=== PATIENT | female | born 1960 | race Caucasian/White ===

== ENCOUNTER 2016-11-24 12:44 | Emergency (ER) | payer OTHER, MEDICARE ==
[~2016-11-24] VITALS: Ht 162.6 cm; Wt 90.9 kg
[~2016-11-24 12:44] MED LIST: AMBIEN 10MG10 MG PO; AMBIEN10 MG PO; AMOXICILLIN/CLA1 TA1 PO; ASPIRIN 81M81 MG/TA2 PO; ATARAX 25MG25 MG/TAB PO; ATIVAN 1MG T1 MG/TAB PO; BACTRIM DS 8001 TAB PO; BENICAR40 MG PO; CARAFATE S1 GM/10 ML PO; CELEXA40 MG PO; COLACE 100100 MG/CAP PO; CYMBALTA 60MG60 MG PO; CYMBALTA30 MG PO; DAZIDOX10 MG PO; DILAUDID 4MG TAB4 MG PO; FENTANYL 50MCG TP; FLAGYL500 MG PO; FLEXERIL 1010 MG/TAB PO; FLEXERIL5 MG PO; GEMCOR600 MG PO; HUMULIN R100 U/ML IJ; KLONOPIN 0.5MG0.5 MG PO; LANTUS100 U/ML SQ; LASIX 20MG TABL20 MG PO; LEVAQUIN 250MG250 MG PO; LEVEMIR100 U/ML SQ; LEXAPRO10 MG PO; LIPITOR 10MG10 MG PO; LISINOPRIL20 MG PO; LOFIBRA160 MG PO; LOPRESSOR 225 MG/TAB PO; LYRICA 50MG CAP50 MG PO; METHADONE H10 MG/TAB PO; METHADONE10 MG PO; MIRALAX 17GM PK1 PKT PO; MIRALAX PA17 GM/Dose PO; NAPROSYN 2250 MG/TAB PO; NIACIN500 M3 PO; NOVLOG SQ; NOVOLOG 100U100 U/M1 SC; NOVOLOG 100U100 U/M1 SQ; NOVOLOG FLEX100 U/ML SQ; PERCOCET 325 MG1 TA2 PO; PERCOCET 325 MG1 TAB PO; PRILOSEC 20MG20 MG PO; REGLAN 10MG10 MG/TAB PO; SODIUM BICARBO650 MG PO; TRICOR48 MG PO; TRIMPEX100 MG PO; VANCOCIN HCL1 GM IV; XANAX 0.5MG0.5 MG PO; ZAROXOLYN 2.52.5 MG PO; ZESTRIL 20MG TA20 MG PO; ZESTRIL40 MG PO; ZOFRAN 4MG T4 MG/TAB PO; ZOFRAN ODT4 MG PO; ZYLOPRIM 100MG100 MG PO; [UNRECOGNIZED DRUG - REMARK] PO
[2016-11-24 12:55] VITALS: TEMP 98.9
[2016-11-24] MEDS ORDERED: PERCOCET 325 MG1 TA3 PO (15:57)
[2016-11-24 16:43] VITALS: BP 145/65; PULSE 78
[2017-02-19] MEDS ORDERED: MAXIPIME1 GM IV (10:04)
== END 2016-11-24 16:43 | disposition home or self-care (01) ==
LOC: COL.ER 12:44
DX: S22.088A Other fracture of T11-T12 vertebra, initial encounter for closed fracture (principal); S32.058A Other fracture of fifth lumbar vertebra, initial encounter for closed fracture; S32.048A Other fracture of fourth lumbar vertebra, initial encounter for closed fracture; S32.038A Other fracture of third lumbar vertebra, initial encounter for closed fracture; S32.028A Other fracture of second lumbar vertebra, initial encounter for closed fracture; S32.018A Other fracture of first lumbar vertebra, initial encounter for closed fracture; V48.5XXA Car driver injured in noncollision transport accident in traffic accident, initial encounter; M25.551 Pain in right hip
CPT/HCPCS: J1170; J2405

== ENCOUNTER 2016-11-26 18:35 | Inpatient (IN) | payer MEDICARE, OTHER ==
[2016-11-26] VITALS (10 sets, daily range): O2SAT 88–100
[~2016-11-26] VITALS: Ht 162.6 cm; Wt 90.7 kg
[~2016-11-26 18:35] MED LIST changes: +PERCOCET 325 MG1 TA3 PO
[2016-11-26 19:55] LABS: BASO % 0.3 % (0.0-2.0); GRAN # 11.1 (1.4-6.5); GRAN % 92.3 % (42.2-75.2); HEMOGLOBIN 10.8 g/dl (12.5-16.0); LYMPH # 0.6 (1.2-3.4); LYMPH % 4.7 % (20.0-51.0); MEAN CELL VOLUME 92 fl (80.0-100.0); MEAN CORPUSCULAR HEMOGLOBIN 28 pg (27.0-31.0); MEAN CORPUSCULAR HGB CONC 30 g/dl (33.0-37.0); MEAN PLATELET VOLUME 10.6 fl (7.4-10.4); MONO # 0.3 (0.1-0.6); MONO % 2.1 % (1.7-9.3); PLATELET COUNT 389 K/mm3 (130-400); RED BLOOD COUNT 3.91 M/mm3 (4.10-5.30); REDCELL DISTRIBUTION WIDTH-CV 12.8 % (11.5-14.5)
[2016-11-26 20:00] LABS: ADJUSTED CALCIUM 10.1 mg/dL (8.4-10.2); ALANINE AMINOTRANSFERASE 16 U/L (9-52); ALBUMIN 4.3 gm/dL (3.5-5.0); ALKALINE PHOSPHATASE 92 U/L (50-136); ANION GAP 34 mmol/L (7-16); BILIRUBIN,TOTAL 0.8 mg/dL (0.0-1.0); BLOOD UREA NITROGEN 42 mg/dL (7-17); CALCIUM 10.3 mg/dL (8.4-10.2); CHLORIDE 96 mmol/L (98-107); CREATININE, serum 2.16 mg/dL (0.52-1.25); LIPASE 89 U/L (23-300); POTASSIUM 4.8 mmol/L (3.4-5.0); SODIUM 139 mmol/L (137-145)
[2016-11-26 20:02] LABS: CARBON DIOXIDE 10 mmol/L (22-30); GLUCOSE 467 mg/dL (74-106)
[2016-11-26 20:31] LABS: PH 5 (5-8); SQUAMOUS EPITHELIAL 0-2 /hpf; URINE APPEARANCE Clear; URINE BACTERIA None Seen /hpf; URINE BILIRUBIN Negative (NEGATIVE); URINE BLOOD 1+ (NEGATIVE); URINE COLOR Yellow; URINE GLUCOSE 3+ (NEGATIVE); URINE KETONE 2+ (NEGATIVE); URINE RBC 0-2 /hpf; URINE UROBILINOGEN Negative (NEGATIVE); URINE WBC 0-2 /hpf
[2016-11-27] VITALS (682 sets, daily range): BP systolic 128–171; BP diastolic 53–88; PULSE 78–108; TEMP 97.3–98.8; O2SAT 80–100
[2016-11-27 01:09] LABS: MAGNESIUM 1.9 mg/dL (1.6-2.3); PHOSPHOROUS 5.4 mg/dL (2.5-4.5)
[2016-11-27 01:14] LABS: CALCIUM 9.5 mg/dL (8.4-10.2); CREATININE, serum 1.81 mg/dL (0.52-1.25); POTASSIUM 4.4 mmol/L (3.4-5.0)
[2016-11-27 02:49] LABS: ARTERIAL BLD GAS O2 SATURATION 94.9 % (92-100); ARTERIAL BLD GAS TCO2 CT 21.9; ARTERIAL BLOOD GAS BASE EXCESS -3.5 (-2-2); ARTERIAL BLOOD GAS HCO3 20.8 meq/L (22-26); ARTERIAL BLOOD GAS PO2 75.9 mmHg (80-100); ARTERIAL BLOOD GAS PO2T 75.9 (80-100); OXYHEMOGLOBIN 94.2 %
[2016-11-27 02:50] LABS: ALLEN TEST YES; ALLENS TEST RESULT PASS; ATS? YES
[2016-11-27 03:09] LABS: CALCIUM 9.3 mg/dL (8.4-10.2); CREATININE, serum 1.73 mg/dL (0.52-1.25); POTASSIUM 4.5 mmol/L (3.4-5.0)
[2016-11-27 05:12] LABS: BASO % 0.2 % (0.0-2.0); GRAN # 9.1 (1.4-6.5); GRAN % 79.7 % (42.2-75.2); HEMATOCRIT 31.5 % (37.0-47.0); LYMPH # 1.2 (1.2-3.4); LYMPH % 10.2 % (20.0-51.0); MEAN CELL VOLUME 89 fl (80.0-100.0); MEAN CORPUSCULAR HEMOGLOBIN 28 pg (27.0-31.0); MEAN CORPUSCULAR HGB CONC 32 g/dl (33.0-37.0); MEAN PLATELET VOLUME 10.1 fl (7.4-10.4); MONO % 9.1 % (1.7-9.3); PLATELET COUNT 337 K/mm3 (130-400); RED BLOOD COUNT 3.56 M/mm3 (4.10-5.30); REDCELL DISTRIBUTION WIDTH-CV 12.6 % (11.5-14.5); WHITE BLOOD COUNT 11.4 K/mm3 (4.8-10.8)
[2016-11-27 05:27] LABS: CALCIUM 9.2 mg/dL (8.4-10.2); CREATININE, serum 1.6 mg/dL (0.52-1.25); MAGNESIUM 1.5 mg/dL (1.6-2.3); PHOSPHOROUS 1.6 mg/dL (2.5-4.5); POTASSIUM 4.7 mmol/L (3.4-5.0)
[2016-11-27 07:55] LABS: CREATININE, serum 1.64 mg/dL (0.52-1.25); POTASSIUM 4.3 mmol/L (3.4-5.0)
[2016-11-27 10:18] LABS: CALCIUM 9.3 mg/dL (8.4-10.2); CREATININE, serum 1.71 mg/dL (0.52-1.25); POTASSIUM 4.2 mmol/L (3.4-5.0)
[2016-11-27 12:19] LABS: CALCIUM 9.1 mg/dL (8.4-10.2); CREATININE, serum 1.62 mg/dL (0.52-1.25); POTASSIUM 5.1 mmol/L (3.4-5.0)
[2016-11-27 14:18] LABS: CALCIUM 8.9 mg/dL (8.4-10.2); CREATININE, serum 1.61 mg/dL (0.52-1.25)
[2016-11-27 17:27] LABS: CREATININE, serum 1.63 mg/dL (0.52-1.25); POTASSIUM 4.7 mmol/L (3.4-5.0)
[2016-11-27 19:21] LABS: CREATININE, serum 1.52 mg/dL (0.52-1.25); POTASSIUM 4.8 mmol/L (3.4-5.0)
[2016-11-27 21:41] LABS: CALCIUM 9.1 mg/dL (8.4-10.2); CREATININE, serum 1.63 mg/dL (0.52-1.25); POTASSIUM 4.4 mmol/L (3.4-5.0)
[2016-11-28 04:01] VITALS: BP 172/89; PULSE 81; TEMP 99.1
[2016-11-28 07:45] LABS: PHOSPHOROUS 3.5 mg/dL (2.5-4.5)
[2016-11-28 07:48] VITALS: BP 186/76; PULSE 82; TEMP 97.9
[2016-11-28 11:47] VITALS: BP 172/64; PULSE 75; TEMP 98.4
[2016-11-28 16:25] VITALS: BP 174/67; PULSE 74; TEMP 99.8
[2016-11-28 19:15] VITALS: BP 147/51; PULSE 71; TEMP 98.9
[2016-11-28 22:26] VITALS: BP 146/68; PULSE 70; TEMP 98.7
[2016-11-29 04:33] VITALS: BP 147/56; PULSE 66; TEMP 98.2
[2016-11-29 08:14] LABS: CALCIUM 9.5 mg/dL (8.4-10.2); CREATININE, serum 1.58 mg/dL (0.52-1.25); POTASSIUM 4.5 mmol/L (3.4-5.0)
[2016-11-29 08:30] VITALS: BP 155/61; PULSE 66; PULSE 966; TEMP 99.2
[2016-11-29] MEDS ORDERED: NOVOLOG FLEX100 U/ML SQ (10:22)
[2017-02-19] MEDS ORDERED: MAXIPIME1 GM IV (10:04)
== END 2016-11-29 13:32 | disposition home or self-care (01) | DRG 639 ==
LOC: COL.ER 18:35 → ICU 21:59 → MEDICAL 11-27 16:35
PROVIDERS: Emergency Medicine; Family Medicine; Nurse Practitioner Family
PROC: 02HV33Z Insertion of Infusion Device into Superior Vena Cava, Percutaneous Approach (ICD-10-PCS; principal; 2016-11-27)
DX: E13.10 Other specified diabetes mellitus with ketoacidosis without coma (principal); E83.39 Other disorders of phosphorus metabolism; E83.42 Hypomagnesemia; D63.1 Anemia in chronic kidney disease; E83.52 Hypercalcemia; E11.43 Type 2 diabetes mellitus with diabetic autonomic (poly)neuropathy; K31.84 Gastroparesis; E11.621 Type 2 diabetes mellitus with foot ulcer; E86.0 Dehydration; I12.9 Hypertensive chronic kidney disease with stage 1 through stage 4 chronic kidney disease, or unspecified chronic kidney disease; E11.22 Type 2 diabetes mellitus with diabetic chronic kidney disease; Z87.891 Personal history of nicotine dependence; Z79.4 Long term (current) use of insulin
CPT/HCPCS: 99223-AI; 99232-AI; 99239; C1751; C1894; J1170; J1644; J1815; J2405; J3475; J7030; J7040

== ENCOUNTER → 2017-01-03 | Outpatient (CLI) | payer MEDICARE ==
[~2017-01-03] MED LIST changes: +ASPI325T6 PO; +BENICAR 20MG TA20 MG PO; +LIPITOR20 MG PO; +MAXIPIME1 GM IV; +MAXIPIME1 GM PO; +NEURONTIN300 MG/CAP PO; +NORVASC 5MG5 MG/TAB PO; +PROCARDIA XL 6060 MG PO; +PROTONIX 40MG T40 MG PO; +ROCEPHIN 2GM VIAL21 IV; +ROXICODONE 55 MG/TAB PO; +TRILIPIX 135MG PO; +TYLENOL 325MG325 MG PO; +VELTASSA8.4 GM PO
== END ==
LOC: COL.RAD 15:36
DX: M12.872 Other specific arthropathies, not elsewhere classified, left ankle and foot (principal)

== ENCOUNTER 2017-01-10 14:33 | Inpatient (IN) | payer MEDICARE ==
[~2017-01-10] VITALS: Ht 152.4 cm; Wt 96.7 kg
[~2017-01-10 14:33] MED LIST changes: -ASPI325T6 PO; -BENICAR 20MG TA20 MG PO; -LIPITOR20 MG PO; -MAXIPIME1 GM IV; -MAXIPIME1 GM PO; -NEURONTIN300 MG/CAP PO; -NORVASC 5MG5 MG/TAB PO; -PROCARDIA XL 6060 MG PO; -PROTONIX 40MG T40 MG PO; -ROCEPHIN 2GM VIAL21 IV; -ROXICODONE 55 MG/TAB PO; -TRILIPIX 135MG PO; -TYLENOL 325MG325 MG PO; -VELTASSA8.4 GM PO
[2017-01-10 15:51] LABS: BASO # 0.1 (0.0-0.2); BASO % 0.8 % (0.0-2.0); EOS # 0.3 (0.0-0.7); EOS % 2.8 % (0-4.0); GRAN # 6.4 (1.4-6.5); GRAN % 55.6 % (42.2-75.2); LYMPH # 3.5 (1.2-3.4); LYMPH % 30.7 % (20.0-51.0); MEAN CELL VOLUME 87 fl (80.0-100.0); MEAN CORPUSCULAR HGB CONC 31 g/dl (33.0-37.0); MONO # 1.1 (0.1-0.6); MONO % 9.7 % (1.7-9.3); PLATELET COUNT 573 K/mm3 (130-400); RED BLOOD COUNT 3.32 M/mm3 (4.10-5.30); REDCELL DISTRIBUTION WIDTH-CV 13.7 % (11.5-14.5); WHITE BLOOD COUNT 11.5 K/mm3 (4.8-10.8)
[2017-01-10 15:52] LABS: HEMATOCRIT 28.8 % (37.0-47.0); HEMOGLOBIN 8.9 g/dl (12.5-16.0); MEAN CORPUSCULAR HEMOGLOBIN 27 pg (27.0-31.0)
[2017-01-10 16:06] LABS: ADJUSTED CALCIUM 9.4 mg/dL (8.4-10.2); ALBUMIN 3.4 gm/dL (3.5-5.0); BILIRUBIN,TOTAL 0.6 mg/dL (0.0-1.0); C-REACTIVE PROTEIN 6.4 mg/dL (0.0-0.9); CALCIUM 8.9 mg/dL (8.4-10.2); CREATININE, serum 3.27 mg/dL (0.52-1.25); POTASSIUM 5.6 mmol/L (3.4-5.0)
[2017-01-10 16:31] LABS: ERYTHROCYTE SEDIMENTATION RATE 85 mm/hr (0-30)
[2017-01-10 18:06] LABS: INR 1.1 (0.8-3.0); PROTHROMBIN TIME 12.1 SECONDS (9.7-12.8)
[2017-01-10 19:00] VITALS: BP 136/62; PULSE 77; TEMP 97.7
[2017-01-10 20:48] LABS: PH 5 (5-8); SQUAMOUS EPITHELIAL 0-2 /hpf; URINE APPEARANCE Clear; URINE BACTERIA None Seen /hpf; URINE BILIRUBIN Negative (NEGATIVE); URINE BLOOD 1+ (NEGATIVE); URINE COLOR Straw; URINE GLUCOSE 2+ (NEGATIVE); URINE KETONE Negative (NEGATIVE); URINE UROBILINOGEN Negative (NEGATIVE)
[2017-01-10 23:54] VITALS: BP 150/54; PULSE 77; TEMP 98.4
[2017-01-11 04:00] VITALS: BP 146/55; PULSE 74; TEMP 97.8
[2017-01-11 06:51] LABS: INR 1.1 (0.8-3.0); PROTHROMBIN TIME 12.3 SECONDS (9.7-12.8)
[2017-01-11 08:17] VITALS: BP 132/51; PULSE 73; TEMP 97.8
[2017-01-11 08:50] LABS: VENOUS BLOOD GAS BE -0.8 (-4-4); VENOUS BLOOD GAS SAO2 86.4 % (60-80)
[2017-01-11 08:51] LABS: VENOUS BLOOD GAS SITE VENIPUNCTURE
[2017-01-11 11:49] VITALS: BP 139/43; PULSE 71; TEMP 98.6
[2017-01-11 14:35] LABS: CALCIUM 8.8 mg/dL (8.4-10.2); CREATININE, serum 2.23 mg/dL (0.52-1.25); POTASSIUM 5.6 mmol/L (3.4-5.0)
[2017-01-11 15:41] VITALS: BP 132/49; PULSE 68; TEMP 97.7
[2017-01-11 20:04] VITALS: BP 153/74; PULSE 71; TEMP 98.1
[2017-01-12 00:14] VITALS: BP 128/99; PULSE 57; TEMP 98.8
[2017-01-12 04:57] VITALS: BP 129/52; PULSE 72; TEMP 98.4
[2017-01-12 06:14] LABS: INR 1.1 (0.8-3.0); PROTHROMBIN TIME 12.7 SECONDS (9.7-12.8)
[2017-01-12 06:22] LABS: CALCIUM 9.3 mg/dL (8.4-10.2); CREATININE, serum 1.96 mg/dL (0.52-1.25)
[2017-01-12 06:24] LABS: POTASSIUM 5.8 mmol/L (3.4-5.0)
[2017-01-12 08:00] VITALS: BP 157/69; PULSE 83; TEMP 98
[2017-01-12 10:30] LABS: BASO # 0.1 (0.0-0.2); BASO % 0.9 % (0.0-2.0); EOS # 0.2 (0.0-0.7); EOS % 2.2 % (0-4.0); GRAN # 6.5 (1.4-6.5); GRAN % 69.7 % (42.2-75.2); LYMPH # 1.9 (1.2-3.4); LYMPH % 19.9 % (20.0-51.0); MEAN CELL VOLUME 90 fl (80.0-100.0); MEAN CORPUSCULAR HGB CONC 30 g/dl (33.0-37.0); MEAN PLATELET VOLUME 10.6 fl (7.4-10.4); MONO # 0.7 (0.1-0.6); PLATELET COUNT 642 K/mm3 (130-400); RED BLOOD COUNT 3.34 M/mm3 (4.10-5.30); REDCELL DISTRIBUTION WIDTH-CV 13.6 % (11.5-14.5); WHITE BLOOD COUNT 9.4 K/mm3 (4.8-10.8)
[2017-01-12 10:31] LABS: HEMATOCRIT 30.1 % (37.0-47.0); HEMOGLOBIN 8.9 g/dl (12.5-16.0); MEAN CORPUSCULAR HEMOGLOBIN 27 pg (27.0-31.0)
[2017-01-12 12:33] VITALS: BP 144/56; PULSE 76; TEMP 98.1
[2017-01-12 16:01] VITALS: BP 159/59; PULSE 75; TEMP 97.9
[2017-01-12 19:10] VITALS: BP 162/48; PULSE 85; TEMP 98.4
[2017-01-13] VITALS (7 sets, daily range): BP systolic 144–226; BP diastolic 53–89; PULSE 72–93; TEMP 97.8–98.8
[2017-01-13 07:08] LABS: BASO # 0.1 (0.0-0.2); BASO % 0.9 % (0.0-2.0); EOS # 0.2 (0.0-0.7); EOS % 2.7 % (0-4.0); GRAN # 2.3 (1.4-6.5); GRAN % 41.3 % (42.2-75.2); LYMPH # 2.2 (1.2-3.4); LYMPH % 40.4 % (20.0-51.0); MEAN CELL VOLUME 89 fl (80.0-100.0); MEAN CORPUSCULAR HGB CONC 30 g/dl (33.0-37.0); MEAN PLATELET VOLUME 10.1 fl (7.4-10.4); MONO # 0.8 (0.1-0.6); MONO % 14.3 % (1.7-9.3); PLATELET COUNT 590 K/mm3 (130-400); RED BLOOD COUNT 3.18 M/mm3 (4.10-5.30); REDCELL DISTRIBUTION WIDTH-CV 13.4 % (11.5-14.5); WHITE BLOOD COUNT 5.5 K/mm3 (4.8-10.8)
[2017-01-13 07:09] LABS: HEMATOCRIT 28.3 % (37.0-47.0); HEMOGLOBIN 8.6 g/dl (12.5-16.0); MEAN CORPUSCULAR HEMOGLOBIN 27 pg (27.0-31.0)
[2017-01-13 07:18] LABS: CALCIUM 9.3 mg/dL (8.4-10.2); CREATININE, serum 1.64 mg/dL (0.52-1.25); POTASSIUM 5.1 mmol/L (3.4-5.0)
[2017-01-13 07:25] LABS: INR 1.1 (0.8-3.0); PROTHROMBIN TIME 12.6 SECONDS (9.7-12.8)
[2017-01-14 02:44] VITALS: BP 177/77; PULSE 73; TEMP 98.5
[2017-01-14 08:45] VITALS: BP 175/60; PULSE 77
[2017-01-14 11:10] LABS: CREATININE, serum 1.63 mg/dL (0.52-1.25)
[2017-01-14 12:39] VITALS: BP 146/50; PULSE 74; TEMP 98.2
[2017-01-14 17:57] VITALS: BP 158/61; PULSE 80; TEMP 98.5
[2017-01-14 20:58] VITALS: BP 113/82; PULSE 83; TEMP 98.5
[2017-01-14 23:26] VITALS: BP 146/61; PULSE 78; TEMP 98.7
[2017-01-15 03:12] VITALS: BP 158/57; PULSE 77; TEMP 98.5
[2017-01-15 08:20] VITALS: BP 164/60; PULSE 78; TEMP 98.3
[2017-01-15 12:05] LABS: BASO # 0.1 (0.0-0.2); EOS # 0.2 (0.0-0.7); EOS % 2.8 % (0-4.0); GRAN % 55.6 % (42.2-75.2); LYMPH # 2.1 (1.2-3.4); LYMPH % 28.8 % (20.0-51.0); MEAN CELL VOLUME 88 fl (80.0-100.0); MEAN CORPUSCULAR HGB CONC 31 g/dl (33.0-37.0); MEAN PLATELET VOLUME 9.9 fl (7.4-10.4); MONO # 0.8 (0.1-0.6); MONO % 11.4 % (1.7-9.3); PLATELET COUNT 562 K/mm3 (130-400); RED BLOOD COUNT 3.33 M/mm3 (4.10-5.30); REDCELL DISTRIBUTION WIDTH-CV 13.5 % (11.5-14.5); WHITE BLOOD COUNT 7.1 K/mm3 (4.8-10.8)
[2017-01-15 12:06] LABS: HEMATOCRIT 29.4 % (37.0-47.0); MEAN CORPUSCULAR HEMOGLOBIN 27 pg (27.0-31.0)
[2017-01-15 12:07] LABS: ADJUSTED CALCIUM 9.6 mg/dL (8.4-10.2); ALBUMIN 3.2 gm/dL (3.5-5.0); BILIRUBIN,TOTAL 0.6 mg/dL (0.0-1.0); CREATININE, serum 1.5 mg/dL (0.52-1.25); MAGNESIUM 1.2 mg/dL (1.6-2.3); POTASSIUM 4.5 mmol/L (3.4-5.0); TOTAL PROTEIN 6.8 gm/dL (6.4-8.2)
[2017-01-15 12:19] VITALS: BP 138/79; PULSE 80; TEMP 98.3
[2017-01-15 13:12] LABS: PH 5 (5-8); SQUAMOUS EPITHELIAL 0-2 /hpf; URINE APPEARANCE Clear; URINE BACTERIA None Seen /hpf; URINE BILIRUBIN Negative (NEGATIVE); URINE BLOOD 1+ (NEGATIVE); URINE COLOR Straw; URINE GLUCOSE 2+ (NEGATIVE); URINE KETONE Negative (NEGATIVE); URINE RBC 0-2 /hpf; URINE UROBILINOGEN Negative (NEGATIVE); URINE WBC 0-2 /hpf
[2017-01-15 15:46] VITALS: BP 153/60; PULSE 71; TEMP 98.2
[2017-01-15 19:25] VITALS: BP 146/50; PULSE 80; TEMP 98.4
[2017-01-15 23:34] VITALS: BP 157/61; PULSE 73; TEMP 98.6
[2017-01-16 03:37] VITALS: BP 151/59; PULSE 73; TEMP 97.9
[2017-01-16 07:47] VITALS: BP 161/59; PULSE 79; TEMP 98.1
[2017-01-16 08:20] LABS: CALCIUM 9.5 mg/dL (8.4-10.2); CREATININE, serum 1.6 mg/dL (0.52-1.25)
[2017-01-16 11:47] VITALS: BP 161/55; PULSE 77; TEMP 98.5
[2017-01-16] MEDS ORDERED: PROCARDIA XL 6060 MG PO (14:03)
[2017-01-16] MEDS ORDERED: LEVEMIR100 U/ML SQ (14:06)
[2017-01-16] MEDS ORDERED: NOVOLOG 100U100 U/M1 SQ (14:06)
[2017-01-16] MEDS ORDERED: REGLAN 10MG10 MG/TAB PO (14:07)
[2017-01-16] MEDS ORDERED: ROCEPHIN 2GM VIAL21 IV (14:24)
[2017-01-16 16:20] VITALS: BP 152/67; PULSE 85; TEMP 98.4
[2017-02-19] MEDS ORDERED: MAXIPIME1 GM IV (10:04)
== END 2017-01-16 17:30 | disposition home health service (06) | DRG 638 ==
LOC: COL.ER 14:33 → MEDICAL 16:07
PROVIDERS: Emergency Medicine; Internal Medicine; Internal Medicine Cardiovascular Disease; Internal Medicine Nephrology; Physician Assistant
PROC: 02HV33Z Insertion of Infusion Device into Superior Vena Cava, Percutaneous Approach (ICD-10-PCS; principal; 2017-01-11)
DX: E11.69 Type 2 diabetes mellitus with other specified complication (principal); M86.172 Other acute osteomyelitis, left ankle and foot; M86.672 Other chronic osteomyelitis, left ankle and foot; L97.429 Non-pressure chronic ulcer of left heel and midfoot with unspecified severity; E11.65 Type 2 diabetes mellitus with hyperglycemia; E11.43 Type 2 diabetes mellitus with diabetic autonomic (poly)neuropathy; K31.84 Gastroparesis; N17.9 Acute kidney failure, unspecified; I12.9 Hypertensive chronic kidney disease with stage 1 through stage 4 chronic kidney disease, or unspecified chronic kidney disease; E11.22 Type 2 diabetes mellitus with diabetic chronic kidney disease; N18.9 Chronic kidney disease, unspecified; D63.1 Anemia in chronic kidney disease; E87.5 Hyperkalemia; Z87.891 Personal history of nicotine dependence; E11.610 Type 2 diabetes mellitus with diabetic neuropathic arthropathy; E11.621 Type 2 diabetes mellitus with foot ulcer; E11.21 Type 2 diabetes mellitus with diabetic nephropathy; Z79.4 Long term (current) use of insulin
CPT/HCPCS: 99222-AI; 99232-AI; 99233-AI; 99239; C1751; J0360; J0692; J0696; J0881-EA-EB-EC; J1644; J1650; J1815; J2405; J2765; J3370; J3475; J7030; J7050

== ENCOUNTER → 2017-01-10 | Outpatient (CLI) | payer MEDICARE | LOC: COL.RAD 09:49 | DX: L97.529 Non-pressure chronic ulcer of other part of left foot with unspecified severity (principal); R93.7 Abnormal findings on diagnostic imaging of other parts of musculoskeletal system | CPT/HCPCS: A9503 ==

== ENCOUNTER → 2017-01-22 | Outpatient (CLI) | payer MEDICARE ==
[~2017-01-22] MED LIST changes: +ASPI325T6 PO; +BENICAR 20MG TA20 MG PO; +LIPITOR20 MG PO; +MAXIPIME1 GM IV; +MAXIPIME1 GM PO; +NEURONTIN300 MG/CAP PO; +NORVASC 5MG5 MG/TAB PO; +PROCARDIA XL 6060 MG PO; +PROTONIX 40MG T40 MG PO; +ROCEPHIN 2GM VIAL21 IV; +ROXICODONE 55 MG/TAB PO; +TRILIPIX 135MG PO; +TYLENOL 325MG325 MG PO; +VELTASSA8.4 GM PO
== END ==
LOC: WCC
DX: E11.621 Type 2 diabetes mellitus with foot ulcer (principal); E11.610 Type 2 diabetes mellitus with diabetic neuropathic arthropathy; L97.529 Non-pressure chronic ulcer of other part of left foot with unspecified severity
CPT/HCPCS: 13919; 17717; 18867; 27517; A6207; A6209; A6212; G0463

== ENCOUNTER → 2017-01-29 | Outpatient (REF) | LOC: ZAIV 06:20 | DX: Z01.89 Encounter for other specified special examinations (principal) ==

== ENCOUNTER → 2017-01-31 | Outpatient (CLI) | payer MEDICARE | LOC: WCC 01-22 14:51 | DX: E11.621 Type 2 diabetes mellitus with foot ulcer (principal); L97.529 Non-pressure chronic ulcer of other part of left foot with unspecified severity; E11.610 Type 2 diabetes mellitus with diabetic neuropathic arthropathy | CPT/HCPCS: 17717; 27517; A6207; A6212 ==

== ENCOUNTER → 2017-02-07 | Outpatient (CLI) | payer MEDICARE | LOC: WCC 09:03 | DX: E11.621 Type 2 diabetes mellitus with foot ulcer (principal); E11.610 Type 2 diabetes mellitus with diabetic neuropathic arthropathy | CPT/HCPCS: 13919; 18867; 27517; A6207; A6209 ==

== ENCOUNTER 2017-02-16 09:50 | Inpatient (IN) | payer MEDICARE ==
[~2017-02-16] VITALS: Ht 162.6 cm; Wt 85.7 kg
[2017-02-16] VITALS (106 sets, daily range): BP systolic 118–175; BP diastolic 62–79; PULSE 75–98; TEMP 98.2–98.9; O2SAT 76–100
[~2017-02-16 09:50] MED LIST changes: -ASPI325T6 PO; -BENICAR 20MG TA20 MG PO; -LIPITOR20 MG PO; -MAXIPIME1 GM IV; -MAXIPIME1 GM PO; -NEURONTIN300 MG/CAP PO; -NORVASC 5MG5 MG/TAB PO; -PROTONIX 40MG T40 MG PO; -ROXICODONE 55 MG/TAB PO; -TRILIPIX 135MG PO; -TYLENOL 325MG325 MG PO; -VELTASSA8.4 GM PO
[2017-02-16 11:06] LABS: BASO # 0.1 (0.0-0.2); BASO % 0.5 % (0.0-2.0); GRAN # 13.3 (1.4-6.5); GRAN % 89.8 % (42.2-75.2); HEMATOCRIT 37.7 % (37.0-47.0); LYMPH # 1.1 (1.2-3.4); LYMPH % 7.1 % (20.0-51.0); MEAN CELL VOLUME 85 fl (80.0-100.0); MEAN CORPUSCULAR HEMOGLOBIN 27 pg (27.0-31.0); MEAN CORPUSCULAR HGB CONC 32 g/dl (33.0-37.0); MEAN PLATELET VOLUME 11.5 fl (7.4-10.4); MONO # 0.3 (0.1-0.6); PLATELET COUNT 320 K/mm3 (130-400); RED BLOOD COUNT 4.45 M/mm3 (4.10-5.30); REDCELL DISTRIBUTION WIDTH-CV 15.2 % (11.5-14.5); WHITE BLOOD COUNT 14.8 K/mm3 (4.8-10.8)
[2017-02-16 11:08] LABS: HEMOGLOBIN 11.9 g/dl (12.5-16.0)
[2017-02-16 11:19] LABS: ADJUSTED CALCIUM 9.6 mg/dL (8.4-10.2); ALBUMIN 4.6 gm/dL (3.5-5.0); BILIRUBIN,TOTAL 0.9 mg/dL (0.0-1.0); C-REACTIVE PROTEIN 0.8 mg/dL (0.0-0.9); CALCIUM 10.1 mg/dL (8.4-10.2); CREATININE, serum 1.71 mg/dL (0.52-1.25); MAGNESIUM 1.6 mg/dL (1.6-2.3); PHOSPHOROUS 4.8 mg/dL (2.5-4.5); POTASSIUM 4.5 mmol/L (3.4-5.0); TOTAL PROTEIN 8.8 gm/dL (6.4-8.2)
[2017-02-16 11:55] LABS: VENOUS BLOOD GAS BE -5.9 (-4-4); VENOUS BLOOD GAS SAO2 70.5 % (60-80)
[2017-02-16 11:56] LABS: VENOUS BLOOD GAS SITE VENIPUNCTURE
[2017-02-16 18:51] LABS: CALCIUM 9.3 mg/dL (8.4-10.2); CREATININE, serum 1.8 mg/dL (0.52-1.25)
[2017-02-17] VITALS (541 sets, daily range): BP systolic 142–161; BP diastolic 63–75; PULSE 66–78; TEMP 98–98.8; O2SAT 81–100
[2017-02-17 00:34] LABS: CALCIUM 8.9 mg/dL (8.4-10.2); CREATININE, serum 1.96 mg/dL (0.52-1.25); POTASSIUM 4.2 mmol/L (3.4-5.0)
[2017-02-17 06:54] LABS: CREATININE, serum 1.89 mg/dL (0.52-1.25); POTASSIUM 3.9 mmol/L (3.4-5.0)
[2017-02-17 12:21] LABS: CREATININE, serum 1.84 mg/dL (0.52-1.25); POTASSIUM 4.4 mmol/L (3.4-5.0)
[2017-02-17 17:20] LABS: HEMATOCRIT 29.8 % (37.0-47.0); MEAN CELL VOLUME 87 fl (80.0-100.0); MEAN CORPUSCULAR HEMOGLOBIN 26 pg (27.0-31.0); MEAN CORPUSCULAR HGB CONC 30 g/dl (33.0-37.0); MEAN PLATELET VOLUME 10.1 fl (7.4-10.4); PLATELET COUNT 279 K/mm3 (130-400); RED BLOOD COUNT 3.41 M/mm3 (4.10-5.30); WHITE BLOOD COUNT 9.1 K/mm3 (4.8-10.8)
[2017-02-17 17:29] LABS: ADJUSTED CALCIUM 8.2 mg/dL (8.4-10.2); ALBUMIN 2.7 gm/dL (3.5-5.0); BILIRUBIN,TOTAL 1.2 mg/dL (0.0-1.0); CALCIUM 7.2 mg/dL (8.4-10.2); CREATININE, serum 1.49 mg/dL (0.52-1.25); POTASSIUM 3.7 mmol/L (3.4-5.0); TOTAL PROTEIN 6.4 gm/dL (6.4-8.2)
[2017-02-18 03:45] VITALS: BP 142/50; PULSE 75; TEMP 98.3
[2017-02-18 07:48] VITALS: BP 137/51; PULSE 68; TEMP 97.8
[2017-02-18 11:15] VITALS: BP 157/66; PULSE 77; TEMP 98.4
[2017-02-18 15:21] VITALS: BP 147/54; PULSE 75; TEMP 98.2
[2017-02-18] MEDS ORDERED: MAXIPIME1 GM PO (17:03)
[2017-02-19] MEDS ORDERED: MAXIPIME1 GM IV (10:04)
== END 2017-02-18 17:50 | disposition home or self-care (01) | DRG 638 ==
LOC: COL.ER 09:50 → ICU 12:25 → EDBEDREQ 12:29 → IMCU 15:05 → MEDICAL 02-17 13:51
PROVIDERS: Emergency Medicine; Internal Medicine Cardiovascular Disease
PROC: 02HV33Z Insertion of Infusion Device into Superior Vena Cava, Percutaneous Approach (ICD-10-PCS; principal; 2017-02-16)
DX: E13.10 Other specified diabetes mellitus with ketoacidosis without coma (principal); M86.672 Other chronic osteomyelitis, left ankle and foot; L97.429 Non-pressure chronic ulcer of left heel and midfoot with unspecified severity; N17.9 Acute kidney failure, unspecified; E11.69 Type 2 diabetes mellitus with other specified complication; Z79.4 Long term (current) use of insulin; E11.621 Type 2 diabetes mellitus with foot ulcer; E11.43 Type 2 diabetes mellitus with diabetic autonomic (poly)neuropathy; K31.84 Gastroparesis; E87.5 Hyperkalemia; Z87.891 Personal history of nicotine dependence; Z91.14 Patient's other noncompliance with medication regimen
CPT/HCPCS: 99223-AI; 99233-AI; 99239; C1751; J0696; J1644; J1815; J2405; J2765; J3480; J7030

== ENCOUNTER → 2017-02-23 | Outpatient (CLI) | payer MEDICARE ==
[~2017-02-23] MED LIST changes: +ASPI325T6 PO; +BENICAR 20MG TA20 MG PO; +LIPITOR20 MG PO; +MAXIPIME1 GM IV; +MAXIPIME1 GM PO; +NEURONTIN300 MG/CAP PO; +NORVASC 5MG5 MG/TAB PO; +PROTONIX 40MG T40 MG PO; +ROXICODONE 55 MG/TAB PO; +TRILIPIX 135MG PO; +TYLENOL 325MG325 MG PO; +VELTASSA8.4 GM PO
== END ==
LOC: WCC → EDSTATUS 02-16 10:08 → WCC 08:28
DX: E11.621 Type 2 diabetes mellitus with foot ulcer (principal); E11.610 Type 2 diabetes mellitus with diabetic neuropathic arthropathy
CPT/HCPCS: 13919; 13973; 27510; A6197; A6199

== ENCOUNTER 2017-02-28 11:13 | Inpatient (IN) | payer OTHER, MEDICARE ==
[~2017-02-28] VITALS: Ht 162.6 cm; Wt 91.8 kg
[~2017-02-28 11:13] MED LIST changes: -ASPI325T6 PO; -BENICAR 20MG TA20 MG PO; -LIPITOR20 MG PO; -NEURONTIN300 MG/CAP PO; -NORVASC 5MG5 MG/TAB PO; -PROTONIX 40MG T40 MG PO; -ROXICODONE 55 MG/TAB PO; -TRILIPIX 135MG PO; -TYLENOL 325MG325 MG PO; -VELTASSA8.4 GM PO
[2017-04-16] VITALS (12 sets, daily range): BP systolic 112–141; BP diastolic 48–80; PULSE 60–76; TEMP 98.3–99
[2017-04-16 06:26] LABS: BASO # 0.1 (0.0-0.2); BASO % 0.9 % (0.0-2.0); EOS # 0.2 (0.0-0.7); EOS % 1.9 % (0-4.0); GRAN # 5.2 (1.4-6.5); LYMPH # 3.4 (1.2-3.4); LYMPH % 34.8 % (20.0-51.0); MEAN CELL VOLUME 86 fl (80.0-100.0); MEAN CORPUSCULAR HGB CONC 31 g/dl (33.0-37.0); MEAN PLATELET VOLUME 10.6 fl (7.4-10.4); MONO # 0.9 (0.1-0.6); MONO % 9.2 % (1.7-9.3); PLATELET COUNT 286 K/mm3 (130-400); RED BLOOD COUNT 4.01 M/mm3 (4.10-5.30); REDCELL DISTRIBUTION WIDTH-CV 15.4 % (11.5-14.5); WHITE BLOOD COUNT 9.8 K/mm3 (4.8-10.8)
[2017-04-16] MEDS ORDERED: NOVOLOG 100U100 U/M1 SQ (06:37)
[2017-04-16] MEDS ORDERED: LEVEMIR100 U/ML SQ (06:38)
[2017-04-16] MEDS ORDERED: REGLAN 10MG10 MG/TAB PO (06:38)
[2017-04-16] MEDS ORDERED: PROCARDIA XL 6060 MG PO (06:39)
[2017-04-16] MEDS ORDERED: ASPIRIN 81M81 MG/TA2 PO (06:40)
[2017-04-16] MEDS ORDERED: DAZIDOX10 MG PO (06:40)
[2017-04-16 06:42] LABS: CALCIUM 9.7 mg/dL (8.4-10.2); CREATININE, serum 2.7 mg/dL (0.52-1.25); POTASSIUM 4.4 mmol/L (3.4-5.0)
[2017-04-16] MEDS ORDERED: NORVASC 5MG5 MG/TAB PO (06:43)
[2017-04-16] MEDS ORDERED: BENICAR40 MG PO (06:43)
[2017-04-16] MEDS ORDERED: NEURONTIN300 MG/CAP PO (06:43)
[2017-04-16] MEDS ORDERED: TRILIPIX 135MG PO (06:44)
[2017-04-16] MEDS ORDERED: VELTASSA8.4 GM PO (06:44)
[2017-04-16] MEDS ORDERED: LIPITOR20 MG PO (06:45)
[2017-04-16 06:50] LABS: HEMATOCRIT 34.5 % (37.0-47.0); HEMOGLOBIN 10.8 g/dl (12.5-16.0); MEAN CORPUSCULAR HEMOGLOBIN 27 pg (27.0-31.0)
[2017-04-17 06:13] VITALS: BP 154/60; PULSE 74; TEMP 98.9
[2017-04-17 06:41] LABS: HEMOGLOBIN 9.5 g/dl (12.5-16.0)
[2017-04-17 09:35] VITALS: BP 139/85; PULSE 81; TEMP 97.8
[2017-04-17 14:21] VITALS: BP 154/51; PULSE 79; TEMP 98.7
[2017-04-17 17:08] VITALS: BP 151/59; PULSE 73; TEMP 97.7
[2017-04-17 22:12] VITALS: BP 142/47; PULSE 72; TEMP 98
[2017-04-18 04:57] VITALS: BP 141/53; PULSE 80; TEMP 99.2
[2017-04-18 09:23] VITALS: BP 140/47; PULSE 71; TEMP 98.2
[2017-04-18 13:49] VITALS: BP 97/49; PULSE 80; TEMP 98.6
[2017-04-18] MEDS ORDERED: ASPI325T6 PO (17:09)
[2017-04-18 17:40] VITALS: BP 133/45; PULSE 76
== END 2017-04-18 18:52 | DRG 41 ==
LOC: SURG 03-19 07:30 → INPTSU 04-16 05:45 → SURG 04-16 07:30
PROVIDERS: Nurse Anesthetist, Certified Registered; Orthopaedic Surgery Sports Medicine
PROC: 0Y6J0Z1 Detachment at Left Lower Leg, High, Open Approach (ICD-10-PCS; principal; 2017-04-16 08:55)
DX: E11.610 Type 2 diabetes mellitus with diabetic neuropathic arthropathy (principal); M86.672 Other chronic osteomyelitis, left ankle and foot; E11.69 Type 2 diabetes mellitus with other specified complication; I12.9 Hypertensive chronic kidney disease with stage 1 through stage 4 chronic kidney disease, or unspecified chronic kidney disease; E11.22 Type 2 diabetes mellitus with diabetic chronic kidney disease; N18.3 Chronic kidney disease, stage 3 (moderate); Z79.4 Long term (current) use of insulin; Z87.891 Personal history of nicotine dependence
CPT/HCPCS: A9284; J0690; J1170; J1644; J1815; J2250; J2704; J7030

== ENCOUNTER 2017-04-18 19:00 | Inpatient (IN) | payer MEDICARE ==
[~2017-04-18] VITALS: Ht 162.6 cm; Wt 89.6 kg
[~2017-04-18 19:00] MED LIST changes: +ASPI325T6 PO; +LIPITOR20 MG PO; +NEURONTIN300 MG/CAP PO; +NORVASC 5MG5 MG/TAB PO; +TRILIPIX 135MG PO; +VELTASSA8.4 GM PO
[2017-04-19 05:48] VITALS: BP 117/98; PULSE 68; TEMP 97.3
[2017-04-19 05:49] VITALS: BP 125/80; PULSE 68; TEMP 98.2
[2017-04-19 16:35] VITALS: BP 118/39; PULSE 75; TEMP 97.6
[2017-04-20 05:50] VITALS: BP 144/55; PULSE 77; TEMP 98.6
[2017-04-20 07:12] LABS: CALCIUM 9.3 mg/dL (8.4-10.2); CREATININE, serum 1.92 mg/dL (0.52-1.25); POTASSIUM 5.1 mmol/L (3.4-5.0)
[2017-04-20 18:00] VITALS: BP 121/48; PULSE 72; TEMP 9.2
[2017-04-21 04:46] VITALS: BP 133/48; PULSE 74; TEMP 97.3
[2017-04-21 17:10] VITALS: BP 103/41; PULSE 70; TEMP 97.1
[2017-04-22 05:38] VITALS: BP 154/68; PULSE 73; TEMP 97.1
[2017-04-22 17:01] VITALS: BP 133/53; PULSE 72; TEMP 97.4
[2017-04-23 04:20] VITALS: BP 131/52; PULSE 73; TEMP 98.5
[2017-04-23 06:29] LABS: CALCIUM 9.4 mg/dL (8.4-10.2); CREATININE, serum 2.22 mg/dL (0.52-1.25); MAGNESIUM 1.7 mg/dL (1.6-2.3); POTASSIUM 5.5 mmol/L (3.4-5.0)
[2017-04-23 15:01] VITALS: PULSE 74; TEMP 98.1
[2017-04-23 16:15] VITALS: BP 99/66
[2017-04-23 23:42] LABS: PH 5 (5-8); SQUAMOUS EPITHELIAL 0-2 /hpf; URINE APPEARANCE Clear; URINE BACTERIA Rare /hpf; URINE BILIRUBIN Negative (NEGATIVE); URINE BLOOD Negative (NEGATIVE); URINE COLOR Straw; URINE GLUCOSE Negative (NEGATIVE); URINE KETONE Negative (NEGATIVE); URINE RBC 0-2 /hpf; URINE UROBILINOGEN Negative (NEGATIVE); URINE WBC 0-2 /hpf
[2017-04-23 23:52] LABS: URINE PROTEIN:CREAT RATIO 0.94 (0.00-0.14)
[2017-04-24 06:15] VITALS: BP 107/40; PULSE 68; TEMP 96.8
[2017-04-24 06:42] LABS: ALBUMIN 3.2 gm/dL (3.5-5.0); CREATININE, serum 2.1 mg/dL (0.52-1.25); PHOSPHOROUS 4.5 mg/dL (2.5-4.5); POTASSIUM 5.6 mmol/L (3.4-5.0)
[2017-04-24 16:04] VITALS: BP 142/45; PULSE 85; TEMP 98.1
[2017-04-25 03:14] VITALS: BP 103/53; PULSE 73; TEMP 98.2
[2017-04-25 05:50] LABS: ALBUMIN 3.6 gm/dL (3.5-5.0); CALCIUM 9.5 mg/dL (8.4-10.2); CREATININE, serum 1.92 mg/dL (0.52-1.25); PHOSPHOROUS 4.5 mg/dL (2.5-4.5); POTASSIUM 5.4 mmol/L (3.4-5.0)
[2017-04-25] MEDS ORDERED: BENICAR 20MG TA20 MG PO (12:00)
[2017-04-25] MEDS ORDERED: PROTONIX 40MG T40 MG PO (12:01)
[2017-04-25] MEDS ORDERED: TYLENOL 325MG325 MG PO (12:02)
[2017-04-25] MEDS ORDERED: ROXICODONE 55 MG/TAB PO (12:03)
== END 2017-04-25 16:55 | disposition home health service (06) | DRG 560 ==
PROVIDERS: Family Medicine; Internal Medicine; Internal Medicine Nephrology
DX: Z47.81 Encounter for orthopedic aftercare following surgical amputation (principal); M86.9 Osteomyelitis, unspecified; N17.9 Acute kidney failure, unspecified; Z89.512 Acquired absence of left leg below knee; E11.610 Type 2 diabetes mellitus with diabetic neuropathic arthropathy; E11.69 Type 2 diabetes mellitus with other specified complication; E11.43 Type 2 diabetes mellitus with diabetic autonomic (poly)neuropathy; K31.84 Gastroparesis; I12.9 Hypertensive chronic kidney disease with stage 1 through stage 4 chronic kidney disease, or unspecified chronic kidney disease; E11.22 Type 2 diabetes mellitus with diabetic chronic kidney disease; N18.9 Chronic kidney disease, unspecified; Z79.4 Long term (current) use of insulin; G89.29 Other chronic pain; E87.5 Hyperkalemia; E11.319 Type 2 diabetes mellitus with unspecified diabetic retinopathy without macular edema; D64.9 Anemia, unspecified
CPT/HCPCS: 99222-AI; 99232-AI; 99233-AI; 99239; J1644; J1815; J7030

== ENCOUNTER → 2017-10-16 | Outpatient (CLI) | payer MEDICARE, OTHER ==
[~2017-10-16] MED LIST changes: +BENICAR 20MG TA20 MG PO; +PROTONIX 40MG T40 MG PO; +ROXICODONE 55 MG/TAB PO; +TYLENOL 325MG325 MG PO
[2017-10-16 12:29] LABS: COLLECTION METHOD CLEAN CATCH
[2017-10-16 12:43] LABS: BASO # 0.1 (0.0-0.2); BASO % 1.1 % (0.0-2.0); EOS # 0.2 (0.0-0.7); EOS % 2.1 % (0-4.0); GRAN # 3.7 (1.4-6.5); GRAN % 51.6 % (42.2-75.2); HEMATOCRIT 37.1 % (37.0-47.0); LYMPH # 2.6 (1.2-3.4); LYMPH % 36.5 % (20.0-51.0); MEAN CELL VOLUME 88 fl (80.0-100.0); MEAN CORPUSCULAR HEMOGLOBIN 28 pg (27.0-31.0); MEAN CORPUSCULAR HGB CONC 32 g/dl (33.0-37.0); MEAN PLATELET VOLUME 10.6 fl (7.4-10.4); MONO # 0.6 (0.1-0.6); MONO % 8.6 % (1.7-9.3); PLATELET COUNT 344 K/mm3 (130-400); RED BLOOD COUNT 4.23 M/mm3 (4.10-5.30); REDCELL DISTRIBUTION WIDTH-CV 12.7 % (11.5-14.5)
[2017-10-16 12:45] LABS: MUCOUS Present /lpf; PH 5 (5-8); SQUAMOUS EPITHELIAL 0-2 /hpf; URINE APPEARANCE Clear; URINE BACTERIA None Seen /hpf; URINE BILIRUBIN Negative (NEGATIVE); URINE BLOOD 1+ (NEGATIVE); URINE COLOR Yellow; URINE GLUCOSE 1+ (NEGATIVE); URINE KETONE Negative (NEGATIVE); URINE LEUKOCYTE ESTERASE Negative (NEGATIVE); URINE NITRATE Negative (NEGATIVE); URINE PROTEIN(semi-quant) 2+ (NEGATIVE); URINE RBC 0-2 /hpf; URINE UROBILINOGEN Negative (NEGATIVE)
[2017-10-16 12:47] LABS: HEMOGLOBIN 11.8 g/dl (12.5-16.0)
[2017-10-16 12:49] LABS: ALBUMIN 4.1 gm/dL (3.5-5.0); BILIRUBIN,TOTAL 0.4 mg/dL (0.0-1.0); CALCIUM 9.9 mg/dL (8.4-10.2); CHOLESTEROL RISK RATIO 4.3; CREATININE, serum 1.92 mg/dL (0.52-1.25); POTASSIUM 4.8 mmol/L (3.4-5.0); TOTAL PROTEIN 7.4 gm/dL (6.4-8.2)
[2017-10-16 13:18] LABS: THYROID STIMULATING HORMONE 1.23 uIU/mL (0.465-4.680)
== END ==
LOC: COL.LAB 11:49
PROVIDERS: Internal Medicine Nephrology
DX: E87.5 Hyperkalemia (principal); E78.1 Pure hyperglyceridemia; E11.22 Type 2 diabetes mellitus with diabetic chronic kidney disease; I10 Essential (primary) hypertension

== ENCOUNTER → 2017-12-12 | Outpatient (CLI) | payer MEDICARE ==
[2017-12-12 11:22] LABS: COLLECTION METHOD CLEAN CATCH
[2017-12-12 11:36] LABS: MUCOUS Present /lpf; PH 6 (5-8); SQUAMOUS EPITHELIAL None Seen /hpf; URINE APPEARANCE Clear; URINE BACTERIA Rare /hpf; URINE BILIRUBIN Negative (NEGATIVE); URINE BLOOD Negative (NEGATIVE); URINE COLOR Yellow; URINE GLUCOSE Negative (NEGATIVE); URINE KETONE Negative (NEGATIVE); URINE LEUKOCYTE ESTERASE Trace (NEGATIVE); URINE NITRATE Negative (NEGATIVE); URINE PROTEIN(semi-quant) 2+ (NEGATIVE); URINE UROBILINOGEN Negative (NEGATIVE)
[2017-12-12 11:48] LABS: ALBUMIN 4.1 gm/dL (3.5-5.0); BILIRUBIN,TOTAL 0.4 mg/dL (0.0-1.0); CALCIUM 9.4 mg/dL (8.4-10.2); CHOLESTEROL RISK RATIO 5.3; CREATININE, serum 1.93 mg/dL (0.52-1.25); POTASSIUM 5.3 mmol/L (3.4-5.0); TOTAL PROTEIN 7.2 gm/dL (6.4-8.2)
[2017-12-12 11:51] LABS: BASO # 0.1 (0.0-0.2); BASO % 0.8 % (0.0-2.0); EOS # 0.1 (0.0-0.7); EOS % 0.9 % (0-4.0); GRAN # 4.8 (1.4-6.5); GRAN % 61.9 % (42.2-75.2); LYMPH # 2.1 (1.2-3.4); LYMPH % 26.9 % (20.0-51.0); MEAN CELL VOLUME 89 fl (80.0-100.0); MEAN CORPUSCULAR HGB CONC 32 g/dl (33.0-37.0); MEAN PLATELET VOLUME 10.7 fl (7.4-10.4); MONO # 0.6 (0.1-0.6); MONO % 8.3 % (1.7-9.3); PLATELET COUNT 323 K/mm3 (130-400); RED BLOOD COUNT 3.91 M/mm3 (4.10-5.30); REDCELL DISTRIBUTION WIDTH-CV 13.3 % (11.5-14.5)
[2017-12-12 11:53] LABS: HEMATOCRIT 34.7 % (37.0-47.0); MEAN CORPUSCULAR HEMOGLOBIN 28 pg (27.0-31.0)
[2017-12-12 12:14] LABS: THYROID STIMULATING HORMONE 1.31 uIU/mL (0.465-4.680)
== END ==
LOC: COL.LAB 10:58
PROVIDERS: Internal Medicine
DX: E78.1 Pure hyperglyceridemia (principal); E11.22 Type 2 diabetes mellitus with diabetic chronic kidney disease; I10 Essential (primary) hypertension

== ENCOUNTER → 2018-01-28 | Outpatient (CLI) | payer MEDICARE ==
[2018-01-28 09:22] LABS: BILIRUBIN,TOTAL 0.3 mg/dL (0.0-1.0); CALCIUM 9.8 mg/dL (8.4-10.2); CREATININE, serum 2.27 mg/dL (0.52-1.25); POTASSIUM 4.8 mmol/L (3.4-5.0)
[2018-01-28 14:06] LABS: BASO # 0.1 (0.0-0.2); EOS # 0.2 (0.0-0.7); EOS % 3.4 % (0-4.0); GRAN # 2.6 (1.4-6.5); GRAN % 45.3 % (42.2-75.2); HEMATOCRIT 36.2 % (37.0-47.0); HEMOGLOBIN 11.2 g/dl (12.5-16.0); LYMPH # 2.3 (1.2-3.4); MEAN CELL VOLUME 91 fl (80.0-100.0); MEAN CORPUSCULAR HEMOGLOBIN 28 pg (27.0-31.0); MEAN CORPUSCULAR HGB CONC 31 g/dl (33.0-37.0); MEAN PLATELET VOLUME 11.3 fl (7.4-10.4); MONO # 0.7 (0.1-0.6); MONO % 11.1 % (1.7-9.3); PLATELET COUNT 321 K/mm3 (130-400); RED BLOOD COUNT 3.99 M/mm3 (4.10-5.30); REDCELL DISTRIBUTION WIDTH-CV 13.5 % (11.5-14.5)
== END ==
LOC: COL.LAB 08:44
DX: Z01.812 Encounter for preprocedural laboratory examination (principal); R73.9 Hyperglycemia, unspecified; I10 Essential (primary) hypertension; M96.1 Postlaminectomy syndrome, not elsewhere classified

== ENCOUNTER → 2018-03-11 | Outpatient (CLI) | payer MEDICARE ==
[2018-03-11 12:40] LABS: CALCIUM 10.2 mg/dL (8.4-10.2); CREATININE, serum 2.01 mg/dL (0.52-1.25); POTASSIUM 4.9 mmol/L (3.4-5.0)
== END ==
LOC: COL.LAB 10:54
PROVIDERS: Internal Medicine Nephrology
DX: N18.3 Chronic kidney disease, stage 3 (moderate) (principal); E66.9 Obesity, unspecified

== ENCOUNTER → 2018-03-22 | Outpatient (CLI) | payer MEDICARE ==
[2018-03-22 10:52] LABS: CHOLESTEROL RISK RATIO 5.6
[2018-03-23 01:41] LABS: URINE MICROALBUMIN 52.9 mg/dL (0.0-1.7)
== END ==
LOC: COL.LAB 09:42
PROVIDERS: Internal Medicine Nephrology
DX: E11.22 Type 2 diabetes mellitus with diabetic chronic kidney disease (principal); E78.1 Pure hyperglyceridemia

== ENCOUNTER → 2018-03-22 | Outpatient (CLI) | payer MEDICARE | LOC: COL.LAB 09:43 | DX: Z01.89 Encounter for other specified special examinations (principal) ==

== ENCOUNTER 2018-06-05 12:16 | Emergency (ER) | payer MEDICARE ==
[~2018-06-05] VITALS: Ht 162.6 cm; Wt 90.9 kg
[2018-06-05 12:17] VITALS: TEMP 98.2
[2018-06-05 12:56] LABS: BASO % 0.2 % (0.0-2.0); EOS % 0.1 % (0-4.0); GRAN # 15.3 (1.4-6.5); GRAN % 81.5 % (42.2-75.2); HEMATOCRIT 38.6 % (37.0-47.0); HEMOGLOBIN 12.7 g/dl (12.5-16.0); LYMPH # 2.2 (1.2-3.4); LYMPH % 11.5 % (20.0-51.0); MEAN CELL VOLUME 85 fl (80.0-100.0); MEAN CORPUSCULAR HEMOGLOBIN 28 pg (27.0-31.0); MEAN CORPUSCULAR HGB CONC 33 g/dl (33.0-37.0); MEAN PLATELET VOLUME 10.4 fl (7.4-10.4); MONO # 1.1 (0.1-0.6); MONO % 5.9 % (1.7-9.3); PLATELET COUNT 394 K/mm3 (130-400); RED BLOOD COUNT 4.57 M/mm3 (4.10-5.30); REDCELL DISTRIBUTION WIDTH-CV 13.3 % (11.5-14.5)
[2018-06-05 13:12] LABS: ACETONE,SERUM NEGATIVE
[2018-06-05 13:24] LABS: ALANINE AMINOTRANSFERASE 22 U/L (9-52); ALBUMIN 4.4 gm/dL (3.5-5.0); ALKALINE PHOSPHATASE 113 U/L (50-136); ANION GAP 14 mmol/L (7-16); AST,SGOT 22 U/L (15-37); BILIRUBIN,TOTAL 0.6 mg/dL (0.0-1.0); BLOOD UREA NITROGEN 47 mg/dL (7-17); CALCIUM 10.5 mg/dL (8.4-10.2); CARBON DIOXIDE 24 mmol/L (22-30); CHLORIDE 95 mmol/L (98-107); CREATININE, serum 2.07 mg/dL (0.52-1.25); GLUCOSE 159 mg/dL (74-106); LIPASE 48 U/L (23-300); POTASSIUM 4.1 mmol/L (3.4-5.0); SODIUM 133 mmol/L (137-145); TOTAL PROTEIN 8.5 gm/dL (6.4-8.2)
[2018-06-05 13:34] LABS: TROPONIN-I 0.035 ng/mL (0.000-0.034)
[2018-06-05 13:43] LABS: COLLECTION METHOD CLEAN CATCH
[2018-06-05 13:54] LABS: MUCOUS Present /lpf; PH 5 (5-8); SQUAMOUS EPITHELIAL 0-2 /hpf; URINE APPEARANCE Clear; URINE BACTERIA Rare /hpf; URINE BILIRUBIN Negative (NEGATIVE); URINE BLOOD Negative (NEGATIVE); URINE COLOR Yellow; URINE GLUCOSE 2+ (NEGATIVE); URINE KETONE Negative (NEGATIVE); URINE LEUKOCYTE ESTERASE Negative (NEGATIVE); URINE NITRATE Negative (NEGATIVE); URINE PROTEIN(semi-quant) 3+ (NEGATIVE); URINE RBC 0-2 /hpf; URINE UROBILINOGEN Negative (NEGATIVE)
[2018-06-05] MEDS ORDERED: DESYREL 100MG100 MG PO (14:44)
[2018-06-05 15:21] VITALS: BP 130/52; PULSE 92
== END 2018-06-05 16:10 | disposition short-term general hospital (02) ==
LOC: COL.ER 12:16
PROVIDERS: Emergency Medicine
DX: N19 Unspecified kidney failure (principal); K59.00 Constipation, unspecified; I10 Essential (primary) hypertension; E78.5 Hyperlipidemia, unspecified; R11.10 Vomiting, unspecified; R79.89 Other specified abnormal findings of blood chemistry; E11.43 Type 2 diabetes mellitus with diabetic autonomic (poly)neuropathy; K31.84 Gastroparesis; Z79.4 Long term (current) use of insulin; Z79.82 Long term (current) use of aspirin; F12.90 Cannabis use, unspecified, uncomplicated; Z87.891 Personal history of nicotine dependence; Z90.49 Acquired absence of other specified parts of digestive tract; Z90.710 Acquired absence of both cervix and uterus
CPT/HCPCS: J1170; J2060; J2405; J2765; J7030

== ENCOUNTER → 2018-06-27 | Outpatient (CLI) | payer MEDICARE ==
[~2018-06-27] MED LIST changes: +DESYREL 100MG100 MG PO
== END ==
LOC: COL.CARD 11:29
DX: R00.2 Palpitations (principal)

== ENCOUNTER → 2018-07-04 | Outpatient (CLI) | payer MEDICARE ==
[2018-07-04 10:26] LABS: CALCIUM 9.5 mg/dL (8.4-10.2); CREATININE, serum 2.6 mg/dL (0.52-1.25); POTASSIUM 5.1 mmol/L (3.4-5.0)
== END ==
LOC: COL.LAB 09:00
PROVIDERS: Internal Medicine
DX: N18.3 Chronic kidney disease, stage 3 (moderate) (principal)

== ENCOUNTER 2018-07-29 11:00 | Outpatient (RCR) | payer MEDICARE | END 2018-08-28 09:10 | disposition home or self-care (01) | LOC: WSOT 11:00 | DX: G56.01 Carpal tunnel syndrome, right upper limb (principal); G56.21 Lesion of ulnar nerve, right upper limb; M25.512 Pain in left shoulder | CPT/HCPCS: G8987-GO; G8989-GO ==

== ENCOUNTER 2018-09-01 00:02 | Emergency (ER) | payer MEDICARE ==
[~2018-09-01] VITALS: Ht 162.6 cm; Wt 90.9 kg
[2018-09-01 00:06] VITALS: TEMP 99.4
[2018-09-01 01:10] LABS: BASO % 0.1 % (0.0-2.0); GRAN # 11.5 (1.4-6.5); GRAN % 86.2 % (42.2-75.2); HEMATOCRIT 41.2 % (37.0-47.0); HEMOGLOBIN 13.3 g/dl (12.5-16.0); LYMPH # 1.1 (1.2-3.4); LYMPH % 8.5 % (20.0-51.0); MEAN CELL VOLUME 88 fl (80.0-100.0); MEAN CORPUSCULAR HEMOGLOBIN 29 pg (27.0-31.0); MEAN CORPUSCULAR HGB CONC 32 g/dl (33.0-37.0); MEAN PLATELET VOLUME 10.2 fl (7.4-10.4); MONO # 0.6 (0.1-0.6); MONO % 4.7 % (1.7-9.3); PLATELET COUNT 290 K/mm3 (130-400); RED BLOOD COUNT 4.66 M/mm3 (4.10-5.30); REDCELL DISTRIBUTION WIDTH-CV 12.9 % (11.5-14.5)
[2018-09-01 01:23] LABS: ALBUMIN 4.4 gm/dL (3.5-5.0); BILIRUBIN,TOTAL 0.6 mg/dL (0.0-1.0); C-REACTIVE PROTEIN 0.8 mg/dL (0.0-0.9); CREATININE, serum 1.89 mg/dL (0.52-1.25); POTASSIUM 4.6 mmol/L (3.4-5.0)
[2018-09-01] MEDS ORDERED: ZOFRAN ODT4 MG PO (02:41)
[2018-09-01 03:07] VITALS: BP 118/72; PULSE 82
[2018-09-02] MEDS ORDERED: METHADONE H10 MG/TAB PO (11:42)
[2018-09-02] MEDS ORDERED: ZOFRAN ODT4 MG PO (12:59)
== END 2018-09-01 03:10 | disposition home or self-care (01) ==
LOC: COL.ER 00:02
PROVIDERS: Emergency Medicine
DX: E11.43 Type 2 diabetes mellitus with diabetic autonomic (poly)neuropathy (principal); K31.84 Gastroparesis; I10 Essential (primary) hypertension; E78.5 Hyperlipidemia, unspecified; Z90.710 Acquired absence of both cervix and uterus; Z90.49 Acquired absence of other specified parts of digestive tract; Z98.890 Other specified postprocedural states; Z79.82 Long term (current) use of aspirin; Z79.4 Long term (current) use of insulin
CPT/HCPCS: J1170; J2405; J2765; J7030

== ENCOUNTER 2018-09-02 08:53 | Emergency (ER) | payer MEDICARE ==
[~2018-09-02] VITALS: Ht 162.6 cm; Wt 90.9 kg
[2018-09-02 09:06] VITALS: BP 174/74; TEMP 98
[2018-09-02 09:58] LABS: BASO # 0.1 (0.0-0.2); BASO % 0.6 % (0.0-2.0); EOS # 0.1 (0.0-0.7); EOS % 0.9 % (0-4.0); GRAN % 64.5 % (42.2-75.2); HEMATOCRIT 38.7 % (37.0-47.0); HEMOGLOBIN 12.4 g/dl (12.5-16.0); LYMPH # 3.3 (1.2-3.4); LYMPH % 26.1 % (20.0-51.0); MEAN CELL VOLUME 89 fl (80.0-100.0); MEAN CORPUSCULAR HEMOGLOBIN 28 pg (27.0-31.0); MEAN CORPUSCULAR HGB CONC 32 g/dl (33.0-37.0); MEAN PLATELET VOLUME 10.1 fl (7.4-10.4); MONO # 0.9 (0.1-0.6); MONO % 7.5 % (1.7-9.3); PLATELET COUNT 293 K/mm3 (130-400); RED BLOOD COUNT 4.36 M/mm3 (4.10-5.30); REDCELL DISTRIBUTION WIDTH-CV 12.9 % (11.5-14.5)
[2018-09-02 10:12] LABS: ALANINE AMINOTRANSFERASE 20 U/L (9-52); ALBUMIN 4.2 gm/dL (3.5-5.0); ALKALINE PHOSPHATASE 114 U/L (50-136); ANION GAP 10 mmol/L (7-16); AST,SGOT 29 U/L (15-37); BILIRUBIN,TOTAL 0.8 mg/dL (0.0-1.0); BLOOD UREA NITROGEN 45 mg/dL (7-17); C-REACTIVE PROTEIN 0.6 mg/dL (0.0-0.9); CALCIUM 9.9 mg/dL (8.4-10.2); CARBON DIOXIDE 23 mmol/L (22-30); CHLORIDE 105 mmol/L (98-107); CREATININE, serum 2.15 mg/dL (0.52-1.25); GLUCOSE 245 mg/dL (74-106); LIPASE 227 U/L (23-300); SODIUM 138 mmol/L (137-145); TOTAL PROTEIN 7.6 gm/dL (6.4-8.2)
[2018-09-02 10:16] LABS: TROPONIN-I < 0.012 ng/mL (0.000-0.034)
[2018-09-02] MEDS ORDERED: METHADONE H10 MG/TAB PO (11:42)
[2018-09-02] MEDS ORDERED: ZOFRAN ODT4 MG PO (12:59)
[2018-09-02 13:20] LABS: COLLECTION METHOD CLEAN CATCH
[2018-09-02 13:30] LABS: MUCOUS Present /lpf; PH 5 (5-8); SQUAMOUS EPITHELIAL 0-2 /hpf; URINE APPEARANCE Clear; URINE BACTERIA None Seen /hpf; URINE BILIRUBIN Negative (NEGATIVE); URINE BLOOD 1+ (NEGATIVE); URINE COLOR Straw; URINE GLUCOSE 3+ (NEGATIVE); URINE KETONE Trace (NEGATIVE); URINE LEUKOCYTE ESTERASE Negative (NEGATIVE); URINE NITRATE Negative (NEGATIVE); URINE PROTEIN(semi-quant) 2+ (NEGATIVE); URINE RBC None Seen /hpf; URINE UROBILINOGEN Negative (NEGATIVE)
[2018-09-02 13:55] VITALS: PULSE 83
== END 2018-09-02 13:57 | disposition home or self-care (01) ==
LOC: COL.ER 08:53
PROVIDERS: Emergency Medicine
DX: R11.10 Vomiting, unspecified (principal); R10.13 Epigastric pain; E11.43 Type 2 diabetes mellitus with diabetic autonomic (poly)neuropathy; E11.22 Type 2 diabetes mellitus with diabetic chronic kidney disease; K31.84 Gastroparesis; I12.9 Hypertensive chronic kidney disease with stage 1 through stage 4 chronic kidney disease, or unspecified chronic kidney disease; N18.9 Chronic kidney disease, unspecified; Z79.82 Long term (current) use of aspirin; Z90.49 Acquired absence of other specified parts of digestive tract; Z90.710 Acquired absence of both cervix and uterus; Z79.4 Long term (current) use of insulin; Z90.89 Acquired absence of other organs
CPT/HCPCS: J0780; J1200; J2405; J2765; J7030

== ENCOUNTER → 2018-09-20 | Outpatient (CLI) | payer MEDICARE | LOC: COL.LAB 17:06 | DX: E87.5 Hyperkalemia (principal) ==

== ENCOUNTER → 2018-09-20 | Outpatient (CLI) | payer MEDICARE ==
[2018-09-20 14:54] LABS: ALBUMIN 3.9 gm/dL (3.5-5.0); BILIRUBIN,TOTAL 0.3 mg/dL (0.0-1.0); CALCIUM 9.6 mg/dL (8.4-10.2); CREATININE, serum 1.98 mg/dL (0.52-1.25); TOTAL PROTEIN 7.1 gm/dL (6.4-8.2)
[2018-09-20 15:45] LABS: POTASSIUM 6.5 mmol/L (3.4-5.0)
== END ==
LOC: COL.LAB 13:20
PROVIDERS: Internal Medicine
DX: E11.22 Type 2 diabetes mellitus with diabetic chronic kidney disease (principal); N18.3 Chronic kidney disease, stage 3 (moderate)

== ENCOUNTER 2018-09-25 16:35 | Emergency (ER) | payer MEDICARE ==
[~2018-09-25] VITALS: Ht 162.6 cm; Wt 95.5 kg
[2018-09-25 16:38] VITALS: TEMP 98.3
[2018-09-25] MEDS ORDERED: ADALAT CC60 MG PO (17:13)
[2018-09-25 17:15] LABS: BASO # 0.1 (0.0-0.2); BASO % 0.6 % (0.0-2.0); EOS # 0.4 (0.0-0.7); GRAN # 4.8 (1.4-6.5); GRAN % 53.5 % (42.2-75.2); HEMOGLOBIN 11.3 g/dl (12.5-16.0); LYMPH # 3.2 (1.2-3.4); LYMPH % 35.4 % (20.0-51.0); MEAN CELL VOLUME 91 fl (80.0-100.0); MEAN CORPUSCULAR HEMOGLOBIN 29 pg (27.0-31.0); MEAN CORPUSCULAR HGB CONC 32 g/dl (33.0-37.0); MEAN PLATELET VOLUME 10.5 fl (7.4-10.4); MONO # 0.6 (0.1-0.6); MONO % 6.3 % (1.7-9.3); PLATELET COUNT 333 K/mm3 (130-400); RED BLOOD COUNT 3.94 M/mm3 (4.10-5.30); REDCELL DISTRIBUTION WIDTH-CV 12.8 % (11.5-14.5)
[2018-09-25 17:16] LABS: HEMATOCRIT 35.8 % (37.0-47.0)
[2018-09-25] MEDS ORDERED: ASPIRIN 81M81 MG/TA2 PO (17:16)
[2018-09-25 17:21] LABS: INR 0.9 (0.8-3.0); PROTHROMBIN TIME 10.3 SECONDS (9.7-12.8)
[2018-09-25 17:24] LABS: PARTIAL THROMBOPLASTIN TIME 27.9 SECONDS (26.0-37.0)
[2018-09-25 17:28] LABS: ALANINE AMINOTRANSFERASE 12 U/L (9-52); ALBUMIN 3.8 gm/dL (3.5-5.0); ALKALINE PHOSPHATASE 86 U/L (50-136); ANION GAP 8 mmol/L (7-16); AST,SGOT 18 U/L (15-37); BILIRUBIN,TOTAL 0.2 mg/dL (0.0-1.0); BLOOD UREA NITROGEN 42 mg/dL (7-17); CARBON DIOXIDE 26 mmol/L (22-30); CHLORIDE 104 mmol/L (98-107); GLUCOSE 203 mg/dL (74-106); SODIUM 138 mmol/L (137-145); TOTAL PROTEIN 6.9 gm/dL (6.4-8.2)
[2018-09-25 17:43] LABS: TROPONIN-I < 0.012 ng/mL (0.000-0.034)
[2018-09-25 21:11] VITALS: BP 113/46; PULSE 70
== END 2018-09-25 21:15 | disposition home or self-care (01) ==
LOC: COL.ER 16:35
PROVIDERS: Emergency Medicine
DX: R07.89 Other chest pain (principal); E11.9 Type 2 diabetes mellitus without complications; I10 Essential (primary) hypertension; K21.9 Gastro-esophageal reflux disease without esophagitis; E78.5 Hyperlipidemia, unspecified; E11.42 Type 2 diabetes mellitus with diabetic polyneuropathy; E11.43 Type 2 diabetes mellitus with diabetic autonomic (poly)neuropathy; K31.84 Gastroparesis; Z79.4 Long term (current) use of insulin; Z79.82 Long term (current) use of aspirin
CPT/HCPCS: J2270; J7050

== ENCOUNTER → 2018-09-27 | Outpatient (CLI) | payer MEDICARE ==
[~2018-09-27] MED LIST changes: +ADALAT CC60 MG PO
== END ==
LOC: COL.RAD 10:48
DX: R91.1 Solitary pulmonary nodule (principal); Z90.49 Acquired absence of other specified parts of digestive tract

== ENCOUNTER 2018-10-09 12:38 | Outpatient (CLI) | payer MEDICARE ==
[~2018-10-09] VITALS: Ht 162.6 cm; Wt 101.5 kg
[2018-10-09] VITALS (14 sets, daily range): BP systolic 93–167; BP diastolic 53–106; PULSE 65–78
--- NOTE | 2018-10-09 13:45 | NUR ---
PT PLACED INTO POSITION AND SCANNED. PICTURES SENT TO [facility]. PT HAS NO PAIN
--- NOTE | 2018-10-09 14:05 | NUR ---
PROCEDURE COMPLETED. PT DID REPORT HAVING TO COUGH. COUGHING DONE WITH BRIGHT RED SPUTUM NOTED. REMINDED PT THIS SOMETIMES HAPPENS AND IT WAS NORMAL WITH THIS PROCEDURE. PT TRANSFES TO CART AND IS ON HER BACK FOR RIDE TO [employer] [facility].
--- NOTE | 2018-10-09 14:23 | NUR ---
Pt arrived from Radiology,report from DAVID tran.
--- NOTE | 2018-10-09 14:42 | NUR ---
TIME OUT DONE. PT DOING WELL. DR VALERA EXPLAINED STEP BY STEP WHAT WAS GOING TO HAPPEN DURING THE PROCEDURE. RISKS AND BENEFITS EXPLAINED TO PT. VSS. PROCEDURE BEGUN
--- NOTE | 2018-10-09 14:43 | NUR ---
VSS. PT DOING WELL. DENIES PAIN, DOES SLINCH OCCASSIONALLY WITH REPOSITIONING OF NEEDLE.
--- NOTE | 2018-10-09 16:48 | NUR ---
Discharge instructions given to pt.Pt verbalizes understanding.INT removed,catheter tip intact.
--- NOTE | 2018-10-09 16:57 | NUR ---
Pt escorted out via wheelchair by this nurse.
== END 2018-10-09 16:58 | disposition home or self-care (01) ==
LOC: COL.RAD 12:38
DX: R91.1 Solitary pulmonary nodule (principal)

== ENCOUNTER 2018-10-12 18:47 | Emergency (ER) | payer MEDICARE ==
[~2018-10-12] VITALS: Ht 162.6 cm; Wt 90.9 kg
[2018-10-12 18:54] VITALS: TEMP 97.3
[2018-10-12 19:37] LABS: HEMATOCRIT 37.2 % (37.0-47.0); HEMOGLOBIN 11.9 g/dl (12.5-16.0); MEAN CELL VOLUME 89 fl (80.0-100.0); MEAN CORPUSCULAR HEMOGLOBIN 29 pg (27.0-31.0); MEAN CORPUSCULAR HGB CONC 32 g/dl (33.0-37.0); MEAN PLATELET VOLUME 10.3 fl (7.4-10.4); PLATELET COUNT 327 K/mm3 (130-400); RED BLOOD COUNT 4.18 M/mm3 (4.10-5.30); REDCELL DISTRIBUTION WIDTH-CV 12.7 % (11.5-14.5)
[2018-10-12 19:49] LABS: ALBUMIN 4.2 gm/dL (3.5-5.0); BILIRUBIN,TOTAL 0.5 mg/dL (0.0-1.0); CALCIUM 10.2 mg/dL (8.4-10.2); CREATININE, serum 1.7 mg/dL (0.52-1.25); POTASSIUM 5.1 mmol/L (3.4-5.0); TOTAL PROTEIN 7.6 gm/dL (6.4-8.2)
[2018-10-12 20:01] LABS: BAND 2 % (0-10); LYMPHOCYTE 6 % (20.0-51.0); NEUTROPHILS 91 % (42.0-75.2); PLATELET ESTIMATE NORMAL (NORMAL)
[2018-10-12 20:02] LABS: OVALOCYTES 1+
[2018-10-12] MEDS ORDERED: COMPAZINE 110 MG/TAB PO (21:18)
[2018-10-12] MEDS ORDERED: CATAPRES 0.1MG0.1 MG PO (21:18)
[2018-10-12 21:47] VITALS: BP 149/61; PULSE 91
== END 2018-10-12 21:50 | disposition home or self-care (01) ==
LOC: COL.ER 18:47
PROVIDERS: Emergency Medicine
DX: F11.23 Opioid dependence with withdrawal (principal); R11.2 Nausea with vomiting, unspecified; K31.84 Gastroparesis; E11.43 Type 2 diabetes mellitus with diabetic autonomic (poly)neuropathy; R19.7 Diarrhea, unspecified; Z90.49 Acquired absence of other specified parts of digestive tract; Z90.710 Acquired absence of both cervix and uterus; Z87.891 Personal history of nicotine dependence; Z79.4 Long term (current) use of insulin; Z79.82 Long term (current) use of aspirin
CPT/HCPCS: J0780; J1200; J2765; J7030

== ENCOUNTER → 2018-11-18 | Outpatient (CLI) | payer MEDICARE ==
[~2018-11-18] MED LIST changes: +CATAPRES 0.1MG0.1 MG PO; +COMPAZINE 110 MG/TAB PO
[2018-11-18 09:00] LABS: CALCIUM 8.8 mg/dL (8.4-10.2); CREATININE, serum 1.7 mg/dL (0.52-1.25); POTASSIUM 4.7 mmol/L (3.4-5.0)
[2018-11-18 09:18] LABS: URINE PROTEIN:CREAT RATIO 1.71 (0.00-0.14)
== END ==
LOC: COL.LAB 08:07
PROVIDERS: Internal Medicine Nephrology
DX: N18.3 Chronic kidney disease, stage 3 (moderate) (principal); I12.9 Hypertensive chronic kidney disease with stage 1 through stage 4 chronic kidney disease, or unspecified chronic kidney disease; R80.8 Other proteinuria

== ENCOUNTER → 2018-12-19 | Outpatient (CLI) | payer MEDICARE | LOC: COL.RAD 09:17 | DX: Q27.30 Arteriovenous malformation, site unspecified (principal) ==

== ENCOUNTER → 2018-12-27 | Outpatient (CLI) | payer MEDICARE ==
[2018-12-27 11:04] LABS: COLLECTION METHOD CLEAN CATCH
[2018-12-27 11:06] LABS: BASO # 0.1 (0.0-0.2); BASO % 0.7 % (0.0-2.0); EOS # 0.2 (0.0-0.7); EOS % 1.7 % (0-4.0); GRAN # 4.7 (1.4-6.5); GRAN % 54.9 % (42.2-75.2); HEMATOCRIT 37.4 % (37.0-47.0); HEMOGLOBIN 11.7 g/dl (12.5-16.0); LYMPH # 2.9 (1.2-3.4); LYMPH % 34.3 % (20.0-51.0); MEAN CELL VOLUME 89 fl (80.0-100.0); MEAN CORPUSCULAR HEMOGLOBIN 28 pg (27.0-31.0); MEAN CORPUSCULAR HGB CONC 31 g/dl (33.0-37.0); MEAN PLATELET VOLUME 10.2 fl (7.4-10.4); MONO # 0.7 (0.1-0.6); MONO % 8.2 % (1.7-9.3); PLATELET COUNT 370 K/mm3 (130-400); RED BLOOD COUNT 4.19 M/mm3 (4.10-5.30); REDCELL DISTRIBUTION WIDTH-CV 13.1 % (11.5-14.5)
[2018-12-27 11:10] LABS: MUCOUS Present /lpf; PH 6 (5-8); SQUAMOUS EPITHELIAL 0-2 /hpf; URINE APPEARANCE Clear; URINE BACTERIA None Seen /hpf; URINE BILIRUBIN Negative (NEGATIVE); URINE BLOOD Negative (NEGATIVE); URINE COLOR Yellow; URINE GLUCOSE Negative (NEGATIVE); URINE KETONE Negative (NEGATIVE); URINE LEUKOCYTE ESTERASE Negative (NEGATIVE); URINE NITRATE Negative (NEGATIVE); URINE PROTEIN(semi-quant) 2+ (NEGATIVE); URINE RBC 0-2 /hpf; URINE UROBILINOGEN Negative (NEGATIVE)
[2018-12-27 11:17] LABS: ALANINE AMINOTRANSFERASE < 6 U/L (9-52); ALBUMIN 4.1 gm/dL (3.5-5.0); ALKALINE PHOSPHATASE 89 U/L (50-136); ANION GAP 11 mmol/L (7-16); AST,SGOT 22 U/L (15-37); BILIRUBIN,TOTAL 0.4 mg/dL (0.0-1.0); BLOOD UREA NITROGEN 77 mg/dL (7-17); CARBON DIOXIDE 28 mmol/L (22-30); CHLORIDE 99 mmol/L (98-107); CHOLESTEROL 187 mg/dL (120-200); CREATININE, serum 2.97 mg/dL (0.52-1.25); GLUCOSE 154 mg/dL (74-106); HDL CHOLESTEROL 37 mg/dL; LDL CHOLESTEROL 93 mg/dL; POTASSIUM 5.4 mmol/L (3.4-5.0); SODIUM 137 mmol/L (137-145); TOTAL PROTEIN 7.5 gm/dL (6.4-8.2); TRIGLYCERIDE 283 mg/dL
== END ==
LOC: COL.LAB 10:36
PROVIDERS: Internal Medicine
DX: Z00.00 Encounter for general adult medical examination without abnormal findings (principal); E11.22 Type 2 diabetes mellitus with diabetic chronic kidney disease

== ENCOUNTER → 2019-01-09 | Outpatient (CLI) | payer MEDICARE ==
[~2019-01-09] MED LIST changes: +TRESIBA FL100 UNIT/1 SQ
[2019-01-09 10:50] LABS: CALCIUM 9.5 mg/dL (8.4-10.2); CREATININE, serum 2.3 (0.52-1.25); POTASSIUM 5.3 mmol/L (3.4-5.0)
== END ==
LOC: COL.LAB 01-08 15:38
PROVIDERS: Internal Medicine
DX: N18.3 Chronic kidney disease, stage 3 (moderate) (principal)

== ENCOUNTER → 2019-03-05 | Outpatient (CLI) | payer MEDICARE ==
[2019-03-05 11:20] LABS: BASO # 0.1 (0.0-0.2); EOS # 0.2 (0.0-0.7); EOS % 2.2 % (0-4.0); GRAN # 3.6 (1.4-6.5); GRAN % 52.4 % (42.2-75.2); HEMATOCRIT 37.5 % (37.0-47.0); HEMOGLOBIN 11.7 g/dl (12.5-16.0); LYMPH # 2.4 (1.2-3.4); LYMPH % 34.3 % (20.0-51.0); MEAN CELL VOLUME 90 fl (80.0-100.0); MEAN CORPUSCULAR HEMOGLOBIN 28 pg (27.0-31.0); MEAN CORPUSCULAR HGB CONC 31 g/dl (33.0-37.0); MEAN PLATELET VOLUME 9.8 fl (7.4-10.4); MONO # 0.7 (0.1-0.6); MONO % 9.7 % (1.7-9.3); PLATELET COUNT 398 K/mm3 (130-400); RED BLOOD COUNT 4.17 M/mm3 (4.10-5.30); REDCELL DISTRIBUTION WIDTH-CV 12.5 % (11.5-14.5)
[2019-03-05 11:43] LABS: ERYTHROCYTE SEDIMENTATION RATE 33 mm/hr (0-30)
== END ==
LOC: COL.LAB 10:46
PROVIDERS: Nurse Practitioner Family
DX: E11.621 Type 2 diabetes mellitus with foot ulcer (principal)

== ENCOUNTER → 2019-03-24 | Outpatient (CLI) | payer MEDICARE ==
[2019-03-24 10:03] LABS: CALCIUM 9.8 mg/dL (8.4-10.2); CREATININE, serum 1.9 (0.52-1.25); POTASSIUM 4.4 mmol/L (3.4-5.0)
[2019-03-24 10:14] LABS: URINE PROTEIN:CREAT RATIO 3.51 (0.00-0.14)
== END ==
LOC: COL.LAB 09:22
PROVIDERS: Internal Medicine Nephrology
DX: N18.3 Chronic kidney disease, stage 3 (moderate) (principal); R80.8 Other proteinuria

== ENCOUNTER → 2019-05-14 | Outpatient (CLI) | payer MEDICARE ==
[2019-05-14 10:01] LABS: ALANINE AMINOTRANSFERASE < 6 U/L (9-52); ALBUMIN 3.8 gm/dL (3.5-5.0); ALKALINE PHOSPHATASE 82 U/L (50-136); ANION GAP 10 mmol/L (7-16); AST,SGOT 19 U/L (15-37); BILIRUBIN,TOTAL 0.4 mg/dL (0.0-1.0); BLOOD UREA NITROGEN 38 mg/dL (7-17); CALCIUM 9.8 mg/dL (8.4-10.2); CARBON DIOXIDE 23 mmol/L (22-30); CHLORIDE 105 mmol/L (98-107); CREATININE, serum 1.73 (0.52-1.25); GLUCOSE 148 mg/dL (74-106); POTASSIUM 5.5 mmol/L (3.4-5.0); SODIUM 138 mmol/L (137-145); TOTAL PROTEIN 7.5 gm/dL (6.4-8.2)
== END ==
LOC: COL.LAB 09:26
PROVIDERS: Internal Medicine
DX: E11.59 Type 2 diabetes mellitus with other circulatory complications (principal)

== ENCOUNTER 2019-06-03 05:55 | Emergency (ER) | payer MEDICARE ==
[~2019-06-03] VITALS: Ht 162.6 cm; Wt 93.2 kg
[2019-06-03 05:59] VITALS: TEMP 97.4
[2019-06-03] MEDS ORDERED: FLEXERIL 1010 MG/TAB PO (06:38)
[2019-06-03 06:58] LABS: BASO # 0.1 (0.0-0.2); BASO % 0.8 % (0.0-2.0); EOS # 0.2 (0.0-0.7); EOS % 3.1 % (0-4.0); GRAN # 3.4 (1.4-6.5); GRAN % 46.2 % (42.2-75.2); HEMOGLOBIN 11.2 g/dl (12.5-16.0); LYMPH # 2.8 (1.2-3.4); LYMPH % 37.9 % (20.0-51.0); MEAN CELL VOLUME 88 fl (80.0-100.0); MEAN CORPUSCULAR HEMOGLOBIN 28 pg (27.0-31.0); MEAN CORPUSCULAR HGB CONC 32 g/dl (33.0-37.0); MEAN PLATELET VOLUME 9.8 fl (7.4-10.4); MONO # 0.9 (0.1-0.6); MONO % 11.7 % (1.7-9.3); PLATELET COUNT 304 K/mm3 (130-400); RED BLOOD COUNT 3.98 M/mm3 (4.10-5.30); REDCELL DISTRIBUTION WIDTH-CV 12.9 % (11.5-14.5)
[2019-06-03 06:59] LABS: HEMATOCRIT 35.2 % (37.0-47.0)
[2019-06-03 07:08] LABS: ALANINE AMINOTRANSFERASE 7 U/L (9-52); ALKALINE PHOSPHATASE 74 U/L (50-136); ANION GAP 11 mmol/L (7-16); AST,SGOT 20 U/L (15-37); BILIRUBIN,TOTAL 0.2 mg/dL (0.0-1.0); BLOOD UREA NITROGEN 46 mg/dL (7-17); CARBON DIOXIDE 26 mmol/L (22-30); CHLORIDE 102 mmol/L (98-107); CREATININE, serum 1.96 (0.52-1.25); GLUCOSE 119 mg/dL (74-106); POTASSIUM 4.4 mmol/L (3.4-5.0); SODIUM 139 mmol/L (137-145); TOTAL PROTEIN 7.2 gm/dL (6.4-8.2)
[2019-06-03 07:52] LABS: TROPONIN-I < 0.012 ng/mL (0.000-0.035)
[2019-06-03] MEDS ORDERED: ULTRAM 50MG TAB50 MG PO (08:10)
[2019-06-03] MEDS ORDERED: SKELAXIN 4400 MG/TAB PO (08:10)
[2019-06-03 08:15] VITALS: BP 149/65; PULSE 72
== END 2019-06-03 08:30 | disposition home or self-care (01) ==
LOC: COL.ER 05:55
PROVIDERS: Emergency Medicine
DX: M54.2 Cervicalgia (principal); E11.22 Type 2 diabetes mellitus with diabetic chronic kidney disease; I12.9 Hypertensive chronic kidney disease with stage 1 through stage 4 chronic kidney disease, or unspecified chronic kidney disease; N18.9 Chronic kidney disease, unspecified; Z90.89 Acquired absence of other organs; F12.90 Cannabis use, unspecified, uncomplicated; Z79.4 Long term (current) use of insulin; Z87.891 Personal history of nicotine dependence
CPT/HCPCS: J2060; J2270

== ENCOUNTER → 2019-08-21 | Outpatient (CLI) | payer MEDICARE ==
[~2019-08-21] MED LIST changes: +SKELAXIN 4400 MG/TAB PO; +ULTRAM 50MG TAB50 MG PO
[2019-08-21 13:02] LABS: CALCIUM 9.4 mg/dL (8.4-10.2); CREATININE, serum 1.48 (0.52-1.25); POTASSIUM 4.5 mmol/L (3.4-5.0)
== END ==
LOC: COL.LAB 12:27
PROVIDERS: Internal Medicine
DX: E11.22 Type 2 diabetes mellitus with diabetic chronic kidney disease (principal); N18.4 Chronic kidney disease, stage 4 (severe)

== ENCOUNTER 2019-08-26 10:36 | Emergency (ER) | payer BC, MEDICARE ==
[~2019-08-26] VITALS: Ht 162.6 cm; Wt 95.5 kg
[2019-08-26 10:40] VITALS: BP 192/92; TEMP 97.5
[2019-08-26 11:35] VITALS: PULSE 82
== END 2019-08-26 11:35 | disposition home or self-care (01) ==
LOC: COL.ER 10:36
DX: S69.91XA Unspecified injury of right wrist, hand and finger(s), initial encounter (principal); E10.9 Type 1 diabetes mellitus without complications; Z79.82 Long term (current) use of aspirin; X50.1XXA Overexertion from prolonged static or awkward postures, initial encounter; Y92.009 Unspecified place in unspecified non-institutional (private) residence as the place of occurrence of the external cause

== ENCOUNTER → 2019-12-16 | Outpatient (CLI) | payer BC, MEDICARE ==
[2019-12-16 11:21] LABS: CALCIUM 9.8 mg/dL (8.4-10.2); CREATININE, serum 1.72 (0.52-1.25); POTASSIUM 4.8 mmol/L (3.4-5.0)
== END ==
LOC: COL.LAB 10:27
PROVIDERS: Internal Medicine
DX: E11.59 Type 2 diabetes mellitus with other circulatory complications (principal)

== ENCOUNTER → 2020-02-17 | Outpatient (CLI) | payer BC, MEDICARE ==
[2020-02-17 13:30] LABS: CREATININE, serum 1.6 (0.52-1.25)
[2020-02-17 13:31] LABS: CALCIUM 9.7 mg/dL (8.4-10.2); POTASSIUM 4.7 mmol/L (3.4-5.0)
[2020-02-17 13:59] LABS: URINE PROTEIN:CREAT RATIO 8.16 (0.00-0.14)
== END ==
LOC: COL.LAB 12:15
PROVIDERS: Internal Medicine Nephrology
DX: N18.3 Chronic kidney disease, stage 3 (moderate) (principal); D63.1 Anemia in chronic kidney disease; R80.8 Other proteinuria

== ENCOUNTER → 2020-02-17 | Outpatient (CLI) | payer BC, MEDICARE ==
[2020-02-17 13:08] LABS: BASO # 0.1 (0.0-0.2); BASO % 0.8 % (0.0-2.0); EOS # 0.2 (0.0-0.7); GRAN # 5.3 (1.4-6.5); GRAN % 54.4 % (42.2-75.2); HEMATOCRIT 38.7 % (37.0-47.0); HEMOGLOBIN 12.5 g/dl (12.5-16.0); LYMPH # 3.4 (1.2-3.4); LYMPH % 34.5 % (20.0-51.0); MEAN CELL VOLUME 87 fl (80.0-100.0); MEAN CORPUSCULAR HEMOGLOBIN 28 pg (27.0-31.0); MEAN CORPUSCULAR HGB CONC 32 g/dl (33.0-37.0); MEAN PLATELET VOLUME 10.4 fl (7.4-10.4); MONO # 0.8 (0.1-0.6); PLATELET COUNT 319 K/mm3 (130-400); RED BLOOD COUNT 4.43 M/mm3 (4.10-5.30)
[2020-02-17 13:14] LABS: ALANINE AMINOTRANSFERASE 11 U/L (4-34); ALBUMIN 3.8 gm/dL (3.5-5.0); ALKALINE PHOSPHATASE 99 U/L (50-136); ANION GAP 6 mmol/L (7-16); AST,SGOT 22 U/L (15-37); BILIRUBIN,TOTAL 0.4 mg/dL (0.0-1.0); BLOOD UREA NITROGEN 39 mg/dL (7-17); CALCIUM 9.7 mg/dL (8.4-10.2); CARBON DIOXIDE 24 mmol/L (22-30); CHLORIDE 103 mmol/L (98-107); CHOLESTEROL 269 mg/dL (120-200); CHOLESTEROL RISK RATIO 7.2; GLUCOSE 265 mg/dL (74-106); POTASSIUM 4.7 mmol/L (3.4-5.0); SODIUM 133 mmol/L (137-145); TOTAL PROTEIN 7.1 gm/dL (6.4-8.2)
[2020-02-17 13:27] LABS: TRIGLYCERIDE 576 mg/dL
[2020-02-17 15:53] LABS: COLLECTION METHOD CLEAN CATCH
[2020-02-17 15:59] LABS: PH 6 (5-8); SQUAMOUS EPITHELIAL 0-2 /hpf; URINE APPEARANCE Clear; URINE BACTERIA None Seen /hpf; URINE BILIRUBIN Negative (NEGATIVE); URINE BLOOD Negative (NEGATIVE); URINE COLOR Yellow; URINE GLUCOSE 3+ (NEGATIVE); URINE KETONE Negative (NEGATIVE); URINE LEUKOCYTE ESTERASE Negative (NEGATIVE); URINE NITRATE Negative (NEGATIVE); URINE PROTEIN(semi-quant) 3+ (NEGATIVE); URINE RBC 0-2 /hpf; URINE UROBILINOGEN Negative (NEGATIVE)
== END ==
LOC: COL.LAB 12:16
PROVIDERS: Internal Medicine
DX: Z00.00 Encounter for general adult medical examination without abnormal findings (principal); E11.22 Type 2 diabetes mellitus with diabetic chronic kidney disease; N18.4 Chronic kidney disease, stage 4 (severe); E87.5 Hyperkalemia

== ENCOUNTER 2020-03-16 07:17 | Day surgery (SDC) | payer BC, MEDICARE ==
[~2020-03-16] VITALS: Ht 165.1 cm; Wt 102.3 kg
[2020-03-16] MEDS ORDERED: RESTORIL 1515 MG/CAP PO (07:35)
[2020-03-16 07:46] VITALS: BP 137/68; PULSE 67; TEMP 97.5
[2020-03-16 10:05] VITALS: BP 117/55; PULSE 67; TEMP 97.2
--- NOTE | 2020-03-16 10:05 | NUR ---
TO [facility] PER [facility]ART FROM ENDOSCOPY. ALERT ORIENTED X 3 TALKING TO STAFF AND . TRANSFERED PER PIVOT TRANSFER TO RECLINER FROM CART. RECEIVED MUFFIN AND GRAPE JUICE.
[2020-03-16 10:20] VITALS: BP 142/74; PULSE 57
--- NOTE | 2020-03-16 10:20 | NUR ---
ATE 100% AND TOLERATED WELL.
--- NOTE | 2020-03-16 10:30 | NUR ---
DR LEONG INTO TALK WITH PATIENT AND HER .
[2020-03-16 10:40] VITALS: BP 143/62; PULSE 71
--- NOTE | 2020-03-16 10:50 | NUR ---
RECEIVED DISCHARGE INSTRUCTIONS AND VERBALIZED UNDERSTANDING. DISCONTINUED IV AND INT- CATHETER INTACT
--- NOTE | 2020-03-16 11:07 | NUR ---
DISCHARGED PER BY NURSING STAFF TO PRIVATE CAR IN CARE OF
== END 2020-03-16 11:08 | disposition home or self-care (01) ==
LOC: SDCO 07:17
DX: Z12.11 Encounter for screening for malignant neoplasm of colon (principal); D12.4 Benign neoplasm of descending colon; D12.3 Benign neoplasm of transverse colon; D12.2 Benign neoplasm of ascending colon; K55.20 Angiodysplasia of colon without hemorrhage; K64.0 First degree hemorrhoids; E87.5 Hyperkalemia; G47.33 Obstructive sleep apnea (adult) (pediatric); K21.9 Gastro-esophageal reflux disease without esophagitis; I12.9 Hypertensive chronic kidney disease with stage 1 through stage 4 chronic kidney disease, or unspecified chronic kidney disease; M19.90 Unspecified osteoarthritis, unspecified site; F41.9 Anxiety disorder, unspecified; E11.22 Type 2 diabetes mellitus with diabetic chronic kidney disease; E11.42 Type 2 diabetes mellitus with diabetic polyneuropathy; E11.43 Type 2 diabetes mellitus with diabetic autonomic (poly)neuropathy; N18.9 Chronic kidney disease, unspecified; D63.1 Anemia in chronic kidney disease; K31.84 Gastroparesis; Z90.710 Acquired absence of both cervix and uterus; Z90.49 Acquired absence of other specified parts of digestive tract; Z79.4 Long term (current) use of insulin; Z91.048 Other nonmedicinal substance allergy status; Z89.512 Acquired absence of left leg below knee; Z79.82 Long term (current) use of aspirin; E66.9 Obesity, unspecified
CPT/HCPCS: J2250; J2704; J7030

== ENCOUNTER → 2020-06-22 | Outpatient (CLI) | payer MEDICARE, BC ==
[~2020-06-22] MED LIST changes: +RESTORIL 1515 MG/CAP PO
[2020-06-22 11:49] LABS: CALCIUM 9.3 mg/dL (8.4-10.2); CREATININE, serum 2.08 (0.52-1.25); POTASSIUM 4.7 mmol/L (3.4-5.0)
[2020-06-22 12:15] LABS: URINE PROTEIN:CREAT RATIO 4.05 (0.00-0.14)
== END ==
LOC: COL.LAB 10:43
PROVIDERS: Internal Medicine Nephrology
DX: I12.9 Hypertensive chronic kidney disease with stage 1 through stage 4 chronic kidney disease, or unspecified chronic kidney disease (principal); N18.3 Chronic kidney disease, stage 3 (moderate); R80.8 Other proteinuria

== ENCOUNTER 2020-07-03 10:17 | Emergency (ER) | payer MEDICARE, BC ==
[~2020-07-03] VITALS: Ht 162.6 cm; Wt 90.9 kg
[2020-07-03 10:25] VITALS: BP 145/89; TEMP 97.2
[2020-07-03 11:12] LABS: BASO # 0.1 (0.0-0.2); BASO % 0.8 % (0.0-2.0); EOS # 0.1 (0.0-0.7); EOS % 1.5 % (0-4.0); GRAN # 4.2 (1.4-6.5); GRAN % 49.2 % (42.2-75.2); HEMATOCRIT 41.2 % (37.0-47.0); HEMOGLOBIN 13.5 g/dl (12.5-16.0); LYMPH # 3.4 (1.2-3.4); LYMPH % 39.8 % (20.0-51.0); MEAN CELL VOLUME 88 fl (80.0-100.0); MEAN CORPUSCULAR HEMOGLOBIN 29 pg (27.0-31.0); MEAN CORPUSCULAR HGB CONC 33 g/dl (33.0-37.0); MEAN PLATELET VOLUME 10.3 fl (7.4-10.4); MONO # 0.7 (0.1-0.6); MONO % 8.5 % (1.7-9.3); PLATELET COUNT 354 K/mm3 (130-400); RED BLOOD COUNT 4.68 M/mm3 (4.10-5.30)
[2020-07-03 11:31] LABS: ALANINE AMINOTRANSFERASE 9 U/L (4-34); ALBUMIN 3.6 gm/dL (3.5-5.0); ALKALINE PHOSPHATASE 97 U/L (50-136); ANION GAP 7 mmol/L (7-16); AST,SGOT 26 U/L (15-37); BILIRUBIN,TOTAL 0.6 mg/dL (0.0-1.0); BLOOD UREA NITROGEN 32 mg/dL (7-17); CALCIUM 9.2 mg/dL (8.4-10.2); CARBON DIOXIDE 28 mmol/L (22-30); CHLORIDE 99 mmol/L (98-107); CREATININE, serum 1.71 (0.52-1.25); GLUCOSE 149 mg/dL (74-106); LIPASE 84 U/L (23-300); POTASSIUM 3.3 mmol/L (3.4-5.0); SODIUM 135 mmol/L (137-145); TOTAL PROTEIN 6.7 gm/dL (6.4-8.2)
[2020-07-03 11:49] LABS: C-REACTIVE PROTEIN < 0.5 mg/dL (0.0-0.9); TROPONIN-I < 0.012 ng/mL (0.000-0.035)
[2020-07-03 12:16] LABS: COLLECTION METHOD CLEAN CATCH
[2020-07-03 12:24] LABS: PH 5 (5-8); URINE APPEARANCE Hazy; URINE BACTERIA None Seen /hpf; URINE BILIRUBIN Negative (NEGATIVE); URINE BLOOD Negative (NEGATIVE); URINE COLOR Yellow; URINE GLUCOSE 3+ (NEGATIVE); URINE KETONE Negative (NEGATIVE); URINE LEUKOCYTE ESTERASE 1+ (NEGATIVE); URINE NITRATE Negative (NEGATIVE); URINE PROTEIN(semi-quant) 3+ (NEGATIVE); URINE UROBILINOGEN Negative (NEGATIVE)
[2020-07-03] MEDS ORDERED: OMNICEF 300MG300 MG PO (12:40)
[2020-07-03 15:20] VITALS: PULSE 88
== END 2020-07-03 13:31 | disposition home or self-care (01) ==
LOC: COL.ER 10:17
PROVIDERS: Emergency Medicine
DX: N39.0 Urinary tract infection, site not specified (principal); R19.7 Diarrhea, unspecified; E11.43 Type 2 diabetes mellitus with diabetic autonomic (poly)neuropathy; I13.10 Hypertensive heart and chronic kidney disease without heart failure, with stage 1 through stage 4 chronic kidney disease, or unspecified chronic kidney disease; N18.9 Chronic kidney disease, unspecified; K31.84 Gastroparesis; G89.29 Other chronic pain; Z20.828 Contact with and (suspected) exposure to other viral communicable diseases; Z90.49 Acquired absence of other specified parts of digestive tract; Z88.1 Allergy status to other antibiotic agents; Z79.4 Long term (current) use of insulin; Z79.82 Long term (current) use of aspirin
CPT/HCPCS: C9113; J0696; J0780; J2060; J2405; J7030

== ENCOUNTER → 2020-07-16 | Outpatient (CLI) | payer MEDICARE, BC ==
[~2020-07-16] MED LIST changes: +OMNICEF 300MG300 MG PO
[2020-07-16 10:23] LABS: CHOLESTEROL 280 mg/dL (120-200); CHOLESTEROL RISK RATIO 7.1; HDL CHOLESTEROL 39 mg/dL
[2020-07-16 13:33] LABS: TRIGLYCERIDE 994 mg/dL
== END ==
LOC: COL.LAB 09:26
PROVIDERS: Internal Medicine
DX: E11.22 Type 2 diabetes mellitus with diabetic chronic kidney disease (principal); N18.9 Chronic kidney disease, unspecified; E78.5 Hyperlipidemia, unspecified

== ENCOUNTER → 2020-08-05 | Outpatient (CLI) | payer BC, MEDICARE | LOC: MC.RAD 10:35 | DX: Z12.31 Encounter for screening mammogram for malignant neoplasm of breast (principal) ==

== ENCOUNTER → 2020-09-14 | Outpatient (CLI) | payer BC, MEDICARE ==
[2020-09-14 13:45] LABS: CREATININE, serum 1.88 (0.52-1.25)
== END ==
LOC: COL.LAB 13:14
PROVIDERS: Family Medicine
DX: R91.1 Solitary pulmonary nodule (principal)

== ENCOUNTER → 2020-10-25 | Outpatient (CLI) | payer BC, MEDICARE ==
[2020-10-25 08:45] LABS: CALCIUM 9.1 mg/dL (8.4-10.2); CREATININE, serum 1.88 (0.52-1.25); POTASSIUM 4.4 mmol/L (3.4-5.0)
[2020-10-25 09:17] LABS: URINE PROTEIN:CREAT RATIO 6.6 (0.00-0.14)
== END ==
LOC: COL.LAB 08:09
PROVIDERS: Internal Medicine Nephrology
DX: N18.30 Chronic kidney disease, stage 3 unspecified (principal); E87.5 Hyperkalemia; R80.9 Proteinuria, unspecified

== ENCOUNTER 2023-12-24 06:54 | Day surgery (SDC) | payer MEDICARE ==
[~2023-12-24] VITALS: Ht 162.6 cm; Wt 100.4 kg
[~2023-12-24 06:54] MED LIST changes: +NORCO 325 MG-51 TAB PO; +NS 1,000 ML IV SCH; +Ondansetron 4 MG/2 ML VIAL IV PRN
[2023-12-24 07:23] VITALS: BP 157/75; PULSE 73; TEMP 97.7
[2023-12-24] MEDS ORDERED: TYLENOL W/COD1 UDTAB PO (07:57)
[2023-12-24] MEDS ORDERED: LOTRISONE 0.05%1 CRE TOP (08:06)
[2023-12-24] MEDS ORDERED: AVALIDE 12.5 MG1 TA1 PO (08:07)
[2023-12-24] MEDS ORDERED: PRILOSEC 20MG20 MG PO (08:07)
[2023-12-24] MEDS ORDERED: TOUJEO300 U/ML SQ (08:10)
[2023-12-24] MEDS ORDERED: COREG 6.256.25 MG/TA PO (08:11)
[2023-12-24] MEDS ORDERED: LEXAPRO20 MG PO (08:12)
[2023-12-24] MEDS ORDERED: VITAMIND3 5000 PO (08:13)
[2023-12-24] MEDS ORDERED: D3-5050000 IU PO (08:14)
[2023-12-24] MEDS ORDERED: Lidocaine PF 2% (20 MG/ML) 5 ML VIAL ONE (08:39)
[2023-12-24 09:40] VITALS: BP 179/89; PULSE 85; TEMP 96.8
--- NOTE | 2023-12-24 09:40 | NUR ---
PATIENT IS ALERT AND AWAKE, AMBULATED FROM CART TO RESTROOM WITH LEFT LEG PROSTHESIS AND 2 ASSIST. AFTER USING THE RESTROOM, PATIENT AMBULATED TO CHAIR WITH 2 ASSIST. DENIES PAIN, NAUSEA AND SHORTNESS OF BREATH. BREATHING REGULAR AND UNLABORED ON ROOM AIR. SKIN WARM AND DRY. NO IV IN PLACE. PER NURSE REPORT, IV WAS REMOVED IN THE PROCEDURE ROOM. NURSE HANDOFF COMPLETED IN ROOM. SEE CHART FOR VITAL SIGNS. PATIENT HAD GRAPE JUICE, CHEESE AND SALTINE CRACKERS. NO DYSPHAGIA. SEE PRE PROCEDURE BLOOD SUGAR. CALL LIGHT IN REACH. SPOUSE, DON, PRESENT IN ROOM.
[2023-12-24 09:55] VITALS: BP 173/86; PULSE 80
[2023-12-24 10:03] VITALS: BP 178/85; PULSE 84
[2023-12-24 10:14] VITALS: BP 169/89; PULSE 80
[2023-12-24 10:21] VITALS: BP 164/81; PULSE 76
--- NOTE | 2023-12-24 10:28 | NUR ---
1003: MET WITH PATIENT AND DON IN ROOM TO DISCUSS PROCEDURE. 1024: DISCHARGE TEACHING COMPLETED WITH PRINTED EDUCATION AND INSTRUCTIONS SENT HOME WITH PATIENT. PATIENT VERBALIZED UNDERSTANDING OF TEACHING. 1028: PATIENT DISCHARGED HOME WITH DON TRANSPORT.
== END 2023-12-24 10:28 | disposition home or self-care (01) ==
LOC: SDCO 06:54
DX: K22.2 Esophageal obstruction (principal); K21.01 Gastro-esophageal reflux disease with esophagitis, with bleeding; K29.80 Duodenitis without bleeding; K44.9 Diaphragmatic hernia without obstruction or gangrene; K29.31 Chronic superficial gastritis with bleeding; Z12.11 Encounter for screening for malignant neoplasm of colon; D12.2 Benign neoplasm of ascending colon; D12.4 Benign neoplasm of descending colon; K64.0 First degree hemorrhoids; G47.33 Obstructive sleep apnea (adult) (pediatric); E11.21 Type 2 diabetes mellitus with diabetic nephropathy; E11.42 Type 2 diabetes mellitus with diabetic polyneuropathy; K31.84 Gastroparesis; Z79.4 Long term (current) use of insulin
CPT/HCPCS: J2704; J7030